=== PATIENT | female | born 1965 | race Caucasian/White ===

== ENCOUNTER 2022-03-07 08:57 | Outpatient (CLI) | payer OTHER, SELFPAY ==
--- OUTSIDE RECORDS SUMMARY | 2022-03-07 09:06 | XMS_ITS | Clinical Summary ---
:1965 Author Organization [facility] [place] [address] Care Team Providers Name Role Phone Clarissa Hamm MD Primary Care Provider [phone] Allergies No known active allergies Medications Medication Sig Dispensed Refills Start Date End Date Status letrozole (FEMARA) 2.5 Take 1 Tablet 30 Tablet 1 09/20/2020 Active mg tabletIndications: (2.5 mg) by mouth Breast mass, Malignant once daily. neoplasm of left breast in female, estrogen receptor positive, unspecified site of breast (HC) Active Problems Problem Noted Date Acute respiratory distress syndrome (ARDS) due to COVI D-19 virus 09/12/2020 Anemia 09/12/2020 Breast mass Social History Tobacco Use Types Packs/Day Years Used Date Smoking Tobacco: Never Assessed Sex Assigned at Date Recorded Not on file Obstetrics History Last Filed Vital Signs Vital Sign Reading Time Taken Comments Blood Pressure 151/73 09/20/2020 8:00 AM CDT Pulse 82 09/20/2020 8:00 AM CDT Temperature 36.8 ??C (98.2 ??F) 09/20/2020 8:00 AM CDT Respiratory Rate 16 09/20/2020 8:00 AM CDT Oxygen Saturation 97% 09/20/2020 8:00 AM CDT Inhaled Oxygen Concentration - - Weight 81.5 kg (179 lb 10.8 oz) 09/18/2020 6:00 AM CDT Height 157.5 cm (5' 2) 09/10/2020 9:30 AM CDT Body Mass Index 32.86 09/10/2020 9:30 AM CDT Plan of Treatment Health Maintenance Due Date Last Done Comments Tdap 01/26/1976 Depression screening for age 12+ 1977 HIV for age 15-65 01/26/1980 BMI (ht and wt on same day) for age 18+ 1983 Hepatitis C screening for age 18-79 1983 Tetanus booster 1985 Pap test for age 21-65 1986 Colonoscopy through age 75 2010 Lipids for age 45-75 2010 Mammogram for age 45-75 2010 Zoster (shingles) series for age 50+ (1 of 2015 2) COVID-19 vaccine series (3 - Booster for 03/23/2021 021, 12/29/2020 Moderna series) Influenza for age 50-64 11/23/2021 Results Not on filefrom Last 3 Months Additional Health Concerns Infection Onset Date Last Indicated COVID HistoryComment: Patient had positi ve COVID test on 09/10/20 Patient met COVID clearance criteria on 09/20/20. Patient no longer requires enhanced respiratory precautions. It is not recommended to collect additional COVID 09/20/2020 09/20/2020 -19 tests until 90 days have passed sinc e first positive test. Exception: patient develops new COVID-19 symptoms. Insurance Payer Benefit Plan / Subscriber ID Effective Dates Phone Addre ss Type Group MEDICA MEDICA CHOICE [id number] 2021-Present [address] [address] [place] [address] Advance Directives Latest Code Status on File Code Status Date Activated Date Inactivated Comments Full Code 09/10/2020 9:47 AM 09/20/2020 7:07 PM Question Answer Comments Code Status Discussion: Per Existing Order Care Teams Scientific Publications Editor Relationship Specialty Start Date End Date Clarissa Hamm MD PCP - General Family Practice 09/10/201999 [place] [address] (work)
[2022-03-07 10:06] LABS: Calcium* 10.7 mg/dL (8.4-10.6)
== END 2022-03-07 08:58 | disposition home or self-care (01) ==
PROVIDERS: PCP Family Medicine; Visit Provider Internal Medicine Hematology & Oncology
DX: C50.812 Malignant neoplasm of overlapping sites of left female breast (principal)
CPT/HCPCS: 36415; 82310; 82397

== ENCOUNTER 2022-04-13 15:43 | Outpatient (CLI) | payer OTHER, SELFPAY ==
--- NOTE | 2022-04-13 16:00 | CRLHL7_ITS ---
For Patients: As a result of the Century Cures Act, medical imaging exams and procedure reports are released immediately into your electronic medical record. You may view this report before your referring provider. If you have questions, please contact your health care provider. 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 Oral chemotherapy. TECHNIQUE: Contrast-enhanced CT of the chest abdomen and pelvis. 98 cc nonionic Isovue-370 administered. COMPARISON: September 04, 2021. FINDINGS: CT chest: Stable slightly prominent left axillary lymph node measured up to 1.3 cm unchanged. The previously suggested left breast skin thickening and increased left breast parenchymal densities are even less evident than before. No convincing evidence for breast masses. Clear lungs. Normal heart size. No pleural or pericardial effusions. No hilar or mediastinal lymphadenopathy. CT of the abdomen and pelvis: Mild hepatic fatty infiltration. The spleen, pancreas, and adrenal glands are normal. Mildly contracted gallbladder which is otherwise unremarkable. Mild ptosis of the right kidney. Circumaortic left renal vein which is a normal anatomic variant. No hydronephrosis. No solid renal mass. Normal caliber abdominal aorta and iliac arteries. Normal inferior vena cava. The small and large bowel are negative for obstruction or ileus. The stomach and duodenum although largely decompressed are within normal limits. Tubal ligation device on the right. No adnexal masses. 1 cm left fundal fibroid image 217 series 2. Normal urinary bladder. No ascites. No abdominal pelvic or inguinal lymphadenopathy. Minimal sclerosis anterior right femoral head entirely unchanged. Minor benign stable sclerosis right iliac wing also seen on November 07, 2016 and unchanged. Rotatory lumbar scoliotic curvature convex towards the left. Hypertrophic and degenerative change of the lumbar facet joints. Degenerative disc disease at multiple levels involving the lumbar spine. Chronic pars defects at L5 with grade II anterolisthesis of L5 on S1. IMPRESSION : 1. Stable chest CT. Mildly prominent but stable 1.3 cm left axillary lymph node. 2. Subtle sclerosis right femoral head unchanged. 3. Mild hepatic fatty infiltration. Please note that all CT scans at this facility use dose modulation, iterative reconstruction, and/or weight-based dosing when appropriate to reduce radiation dose to as low as reasonably achievable. Dictated by Oren Pineda MD @ 04/15/2022 10:48:12 PM (Electronically Signed)
== END 2022-04-13 15:44 | disposition home or self-care (01) ==
PROVIDERS: PCP Family Medicine; Visit Provider Internal Medicine Hematology & Oncology
DX: C50.812 Malignant neoplasm of overlapping sites of left female breast (principal); R59.0 Localized enlarged lymph nodes; K76.0 Fatty (change of) liver, not elsewhere classified
CPT/HCPCS: 71260; 74177; Q9967

== ENCOUNTER 2022-10-09 07:31 | Outpatient (CLI) | payer OTHER, SELFPAY ==
--- NOTE | 2022-10-09 08:00 | CRLHL7_ITS ---
For Patients: As a result of the Century Cures Act, medical imaging exams and procedure reports are released immediately into your electronic medical record. You may view this report before your referring provider. If you have questions, please contact your health care provider. INDICATION: Left-sided inflammatory breast cancer. 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 History of chemotherapy. Surveillance CT. Follow-up. TECHNIQUE: Contrast-enhanced CT of the chest, abdomen and pelvis. 98 cc Isovue 370 intravenous contrast. COMPARISON: April 13, 2022. FINDINGS: CT Chest: Stable 1.3 cm left axillary lymph node on series 2 image 28. Minor asymmetric skin thickening of the left breast relative to the right, less evident than before. Few millimeter low-attenuation left thyroid lobe nodule is entirely unchanged. The trachea and mainstem bronchi are patent and clear. Both lungs are expanded and clear. No hilar/mediastinal lymphadenopathy. Normal-caliber thoracic aorta. Minimal coronary artery calcification in the LAD territory. CT of the Abdomen and Pelvis: The liver, spleen, pancreas, gallbladder, both adrenal glands, and kidneys are within normal limits. Mild ptosis of the right kidney is entirely unchanged, congenital in nature. Circum-aortic left renal vein which is a normal anatomic variant. Normal-caliber abdominal aorta and iliac arteries. Normal inferior vena cava. The urinary bladder, uterus, and both adnexa are unremarkable. Essure device within the right hemipelvis seen previously. No bowel obstruction or ileus. No ascites or lymphadenopathy. Lumbar scoliotic curvature convex towards the left. Multilevel degenerative disc disease of the lumbar spine. Chronic pars defects at L5-S1 with grade II anterolisthesis of L5 on S1. Minimal sclerosis of the anterior right femoral head, entirely unchanged. IMPRESSION: 1. Stable chest CT. Mildly prominent stable 1.3 cm left axillary lymph node. 2. Subtle sclerosis of right femoral head, unchanged. 3. Mild hepatic fatty infiltration. Please note that all CT scans at this facility use dose modulation, iterative reconstruction, and/or weight-based dosing when appropriate to reduce radiation dose to as low as reasonably achievable. Dictated by Oren Pineda MD @ 10/09/2022 10:04:57 AM (Electronically Signed)
== END 2022-10-09 07:32 | disposition home or self-care (01) ==
LOC: CT 07:32
PROVIDERS: PCP Family Medicine; Visit Provider Internal Medicine Hematology & Oncology
DX: C50.812 Malignant neoplasm of overlapping sites of left female breast (principal); K76.0 Fatty (change of) liver, not elsewhere classified; R59.0 Localized enlarged lymph nodes
CPT/HCPCS: 71260; 74177; Q9967

== ENCOUNTER 2023-02-21 15:05 | Outpatient (CLI) | payer OTHER, SELFPAY ==
--- NOTE | 2023-02-21 15:00 | CRLHL7_ITS ---
For Patients: As a result of the Century Cures Act, medical imaging exams and procedure reports are released immediately into your electronic medical record. You may view this report before your referring provider. If you have questions, please contact your health care provider. DXA BONE MINERAL DENSITY STUDY Current height (in): 62.0. Weight (lb): 193.0. Menopause age: 52. Ethnicity: White. Reason for exam: Female inflammatory breast cancer. Screening. 1. Have you had a previous hip or vertebral fracture? No. 2. Have you had any fractures during your adult life which did not result from significant trauma (e.g., auto accident)? No. 3. Did either of your parents have a hip fracture? No. 4. Do you smoke? No. 5. Have you ever taken Glucocorticoids? No. 6. Do you have rheumatoid arthritis? No. 7. Do you have secondary osteoporosis? No. 8. Do you drink 3 or more alcoholic drinks per day? No. 9. Are you being treated for osteoporosis? No. 10. Have you ever taken any of the following medications: Actonel, Evista, Fosamax, Miacalcin, Reclast, Boniva, Forteo, HRT (i.e. estrogen/hormone therapy), Protelos, Prolia, Vitamin D, Calcium, other ??? please specify. ANSWER: Yes, vitamin D. 11. Do you have any of the following medical conditions: Anorexia or bulimia, asthma or emphysema, end stage renal disease, hyperparathyroidism, any seizure disorders, cancer, inflammatory bowel diseases, hysterectomy, other ??? please specify. ANSWER: Yes, breast cancer. 12. What was your maximum height (inches)? 62. 13. Do you perform weight bearing exercise regularly? No. 14. Do you regularly consume dairy products? No. 15. Do you drink caffeinated beverages? Yes. 16. At what age did your period start? 12. 17. Are you premenopausal? No. 18. How many full-term pregnancies have you had? 3. 19. Have you ever missed your period for more than 6 months in a row (not including or menopause)? No. TECHNIQUE: Bone mineral density study was performed using the [employer]. FINDINGS: The results of the study expressed as bone mineral density (BMD) are as follows: Lumbar spine L1 to L4: BMD: 1.237 g/cm2. T-score: 1.7. Z-score: 3.0. Neck Left: BMD: 0.897 g/cm2. T-score: 0.4. Z-score: 1.6. Right: BMD: 0.824 g/cm2. T-score: -0.2. Z-score: 1.0. Total Left: BMD: 1.174 g/cm2. T-score: 1.9. Z-score: 2.7. Right: BMD: 1.097 g/cm2. T-score: 1.3. Z-score: 2.1. IMPRESSION: Normal bone density. Justo Cadena M.D. Diagnostic Radiologist [email or web address] Transcribed: 9:47 am DW/Dictated by: Justo Cadena MD @ 02/25/2023 6:38:00 AM (Electronically Signed)
== END 2023-02-21 15:06 | disposition home or self-care (01) ==
LOC: RAD 15:06
PROVIDERS: PCP Family Medicine; Visit Provider Nurse Practitioner Adult Health
DX: Z13.820 Encounter for screening for osteoporosis (principal); C50.812 Malignant neoplasm of overlapping sites of left female breast
CPT/HCPCS: 77080

== ENCOUNTER 2023-04-09 14:48 | Outpatient (CLI) | payer OTHER, SELFPAY | END 2023-04-09 14:49 | disposition home or self-care (01) | LOC: NFLDREF 14:49 | PROVIDERS: PCP Family Medicine; Visit Provider Family Medicine | DX: J10.1 Influenza due to other identified influenza virus with other respiratory manifestations (principal); C50.919 Malignant neoplasm of unspecified site of unspecified female breast; Z79.811 Long term (current) use of aromatase inhibitors | CPT/HCPCS: 80048; 82565 ==

== ENCOUNTER 2023-04-19 08:46 | Outpatient (CLI) | payer OTHER, SELFPAY ==
--- OUTSIDE RECORDS SUMMARY | 2023-04-19 08:49 | XMS_ITS | Encounter Summary ---
Author Name Unknown Organization [facility] Address [address] [facility] [place] [address] Care Team Providers Care Billing Machine Operator Name Role Phone Cynthia Sheehan MD Unavailable [phone] Clarissa Hamm MD Primary Care Provider + Cynthia Sheehan MD Unavailable [phone] Encounter Details Date Type Department Care Team (Late st Contact Info) Description 02/18/2023 MyC Medical Advice [place] [id number] [facility] [address] [place] [address] Leonora Frausto, RN Social History Tobacco Use Types Packs/Day Years Used Date Smoking Tobacco: Never Assessed Adolescent Education Answer Date Record ed Getting School Help Needed Not on file 12/15 Sex and Gender Information Value Date Recorded Sex Assigned at Not on file Gender Identity Not on file Sexual Orientation Not on file documented as of this encounter Plan of Treatment Upcoming Encounters Date Type Department Care Team (Late st Contact Info) Description 05/27/2023 8:30 AM PRO[employer] INTER[employer] Virtual Visit [facility] [address] [facility] [address] [place] [phone] Cynthia Sheehan MD [address] [facility] [address] [place] [address] documented as of this encounter Visit Diagnoses Not on filedocumented in this encounter Care Teams Billing Machine Operator Relationship Specialty Start Date End Date Clarissa Hamm MD [facility] [address] [place] [address] PCP - General 08/07/22 Cynthia Sheehan MD [address] [facility] [address] [place], [place] [address] Hospitalist Endocrinology, Diabetes, and Metabolism 04/24/22 Cynthia Sheehan MD [address] [facility] [address] [place], [place] [address] Assigned Endocrinology Provider 08/11/22 documented as of this encounter
--- OUTSIDE RECORDS SUMMARY | 2023-04-19 08:49 | XMS_ITS | Encounter Summary ---
Author Name Unknown Organization [place] Address [address] [facility] [place] [address] Care Team Providers Care Air Conditioning Technician Name Role Phone Cynthia Sheehan MD Unavailable [phone] Clarissa Hamm MD Primary Care Provider + Cynthia Sheehan MD Unavailable [phone] Encounter Details Date Type Department Care Team (Late st Contact Info) Description 02/15/2023 9:45 AM HELP DESK ANALYST Lab M [address] [address] Hyperparathyroidism (H24) Social History Tobacco Use Types Packs/Day Years Used Date Smoking Tobacco: Never Assessed Adolescent Education Answer Date Record ed Getting School Help Needed Not on file 12/15 Sex and Gender Information Value Date Recorded Sex Assigned at Not on file Gender Identity Not on file Sexual Orientation Not on file documented as of this encounter Miscellaneous Notes * Result Encounter Note - Cynthia Sheehan MD - 02/15/2023 9:45 AM HELP DESK ANALYST Labs/results noted. Please see telephone encounter dated 02/16/2023. DESK ANALYST documented in this encounter Plan of Treatment Upcoming Encounters Date Type Department Care Team (Late st Contact Info) Description 05/27/2023 8:30 AM HELP DESK ANALYST Virtual Visit M [facility] [address] [place] [address] Cynthia Sheehan MD [address] [place] [address] documented as of this encounter Procedures Procedure Name Priority Date/Time Associated Diagnosis Comments VITAMIN D DEFICIENCY SCREENING Routine 02/15/2023 9:26 AM HELP DESK ANALYST Hyperparathyroidism (H24) PHOSPHORUS Routine 02/15/2023 9:26 AM HELP DESK ANALYST Hyperparathyroidism (H24) PARATHYROID HORMONE INTACT Routine 02/15/2023 9:26 AM HELP DESK ANALYST Hyperparathyroidism (H24) MAGNESIUM Routine 02/15/2023 9:26 AM HELP DESK ANALYST Hyperparathyroidism (H24) CREATININE Routine 02/15/2023 9:26 AM HELP DESK ANALYST Hyperparathyroidism (H24) CALCIUM Routine 02/15/2023 9:26 AM HELP DESK ANALYST Hyperparathyroidism (H24) documented in this encounter Results * (ABNORMAL) Creatinine (02/15/2023 9:26 AM HELP DESK ANALYST) Creatinine 1.21(H) 0.51 - 0.95 mg/dL 02/15/2023 4:21 PM HELP DESK ANALYST [facility] GFR Estimate 52(L) >60 mL/min/1.7 3m2 02/15/2023 4:21 PM HELP DESK ANALYST [facility] Blood BLOOD SPECIMEN / Unknown Venipuncture / Unknown 02/15/2023 9:26 AM HELP DESK ANALYST 02/15/2023 9:27 AM HELP DESK ANALYST Cynthia Sheehan MD LAB - BLOOD ORDER ANDREA [facility] [place] [facility] [address] [facility], [address] [place] [address] [phone] * (ABNORMAL) Calcium (02/15/2023 9:26 AM HELP DESK ANALYST) Calcium 10.3(H) 8.6 - 10.0 mg/dL 02/15/2023 4:21 PM HELP DESK ANALYST [facility] Blood BLOOD SPECIMEN / Unknown Venipuncture / Unknown 02/15/2023 9:26 AM HELP DESK ANALYST 02/15/2023 9:27 AM HELP DESK ANALYST Cynthia Sheehan MD LAB - BLOOD ORDER ANDREA [facility] [address] [facility], [address] [address], [facility] [phone] * Vitamin D Deficiency (02/15/2023 9:26 AM HELP DESK ANALYST) Vitamin D, Total (25-Hydroxy) 26 20 - 50 ng/mL 02/15/2023 4:21 PM HELP DESK ANALYST [facility] Comment:optimum levels Blood BLOOD SPECIMEN / Unknown Venipuncture / Unknown 02/15/2023 9:26 AM HELP DESK ANALYST 02/15/2023 9:27 AM HELP DESK ANALYST Narrative [facility] - 02/15/2023 4:21 PM HELP DESK ANALYST Season, race, dietary intake, and treatment affect the concentration of 62-[id number]-Nfailfo D. Values may decrease during winter months and increase during summer months. Vitamin D determination is routinely performed by an immunoassay specific for 25 hydroxyvitamin D3. ??If an individual is on vitamin D2(ergocalciferol) supplementation, please specify 25 OH vitamin D2 and D3 level determination by LCMSMS test VITD23. Cynthia Sheehan MD LAB - BLOOD ORDER ANDREA [facility] [address] [facility], [address] [place] [address], [facility] [phone] * (ABNORMAL) Parathyroid Hormone Intact (02/15/2023 9:26 AM HELP DESK ANALYST) Parathyroid Hormone Intact 94(H) 15 - 65 pg/mL 02/15/2023 4:06 PM HELP DESK ANALYST [facility] Blood BLOOD SPECIMEN / Unknown Venipuncture / Unknown 02/15/2023 9:26 AM HELP DESK ANALYST 02/15/2023 9:27 AM HELP DESK ANALYST Narrative [facility] - 02/15/2023 4:06 PM HELP DESK ANALYST This result was obtained with the [employer] PTH STAT assay. This reference range differs from PTH assays used in other [facility] laboratories. Cynthia Sheehan MD LAB - BLOOD ORDER ANDREA [facility] [address] [facility], [address] [address], [facility] [phone] * Magnesium (02/15/2023 9:26 AM HELP DESK ANALYST) Magnesium 2.1 1.7 - 2.3 mg/dL 02/15/2023 4:21 PM HELP DESK ANALYST [facility] Blood BLOOD SPECIMEN / Unknown Venipuncture / Unknown 02/15/2023 9:26 AM HELP DESK ANALYST 02/15/2023 9:27 AM HELP DESK ANALYST Cynthia Sheehan MD LAB - BLOOD ORDER ANDREA [facility] [address] [facility], [address] [address], [facility] [phone] * Phosphorus (02/15/2023 9:26 AM HELP DESK ANALYST) Phosphorus 2.8 2.5 - 4.5 mg/dL 02/15/2023 4:21 PM HELP DESK ANALYST [facility] Blood BLOOD SPECIMEN / Unknown Venipuncture / Unknown 02/15/2023 9:26 AM HELP DESK ANALYST 02/15/2023 9:27 AM HELP DESK ANALYST Cynthia Sheehan MD LAB - BLOOD ORDER ANDREA [facility] [place] [facility] [address] [facility], [address] [place] [address] [phone] documented in this encounter Visit Diagnoses Diagnosis Hyperparathyroidism (H24) Hyperparathyroidism, unspecified documented in this encounter Care Teams Air Conditioning Technician Relationship Specialty Start Date End Date Clarissa Hamm MD [facility] & [address] [address] PCP - General 08/07/22 Cynthia Sheehan MD [address] [facility] [address] [place] [address] Hospitalist Endocrinology, Diabetes, and Metabolism 04/24/22 Cynthia Sheehan MD [address] [place] [address] 200 [place] [address] Assigned Endocrinology Provider 08/11/22 documented as of this encounter
--- OUTSIDE RECORDS SUMMARY | 2023-04-19 08:49 | XMS_ITS | Encounter Summary ---
Author Name Unknown Organization [place] Address [address] [facility] [place] [address] Care Team Providers Care Assembler Tubing Name Role Phone Cynthia Sheehan MD Unavailable [phone] Clarissa Hamm MD Primary Care Provider + Cynthia Sheehan MD Unavailable [phone] Reason for Visit * Reason Onset Date Comments Call Back 08/21/2022 Encounter Details Date Type Department Care Team (Late st Contact Info) Description 08/21/2022 Telephone [facility] [address] [place] [address] Cynthia Sheehan MD [address] [place] [address] Call Back Social History Tobacco Use Types Packs/Day Years Used Date Smoking Tobacco: Never Assessed Sex and Gender Information Value Date Recorded Sex Assigned at Not on file Gender Identity Not on file Sexual Orientation Not on file COVID-19 Exposure Response Date Recorded In the last 10 days, have yo u been in contact with someone who was confirmed or suspected to have Coronavirus/COVID-19? No / Unsure 08/17/2022 11:20 AM CDT documented as of this encounter Miscellaneous Notes * Telephone Encounter - Kalina Will RN - 08/22/2022 10:37 AM CDT Pt informed of below and verbalized understanding. Pt will c/b to make appt. Pt taking wanted to let provider know b12 Vit C 500mg 30mg of zinc. * Telephone Encounter - Mabel Thompson - 08/21/2022 12:42 PM CDT [facility] Phone Message May a detailed message be left on voicemail: yes Reason for Call: Other: Per pt would like if whoever called her to not call until 4 pm today. Pt istaking a class until 4 pm unless the team calls her tomorrow which is ok. Please and thank you! Action Taken: Message routed to: [facility] ([facility]): ENDO Travel Screening: Not Applicable * Telephone Encounter - Kalina Will RN - 08/21/2022 11:44 AM CDT LM for pt to c/b to discuss below. * Telephone Encounter - Cynthia Sheehan MD - 08/21/2022 8:59 AM CDT Latest Ref Rng 08/17/2022 11:21 AM ENDO [facility] Vitamin D Deficiency screening 20 - 75 ug/L 11 (L) Calcium 8.6 - 10.0 mg/dL 11.1 (H) Creatinine 0.51 - 0.95 mg/dL 1.10 (H) Magnesium 1.7 - 2.3 mg/dL 2.1 Parathyroid Hormone Intact 15 - 65 pg/mL 80 (H) Legend: (L) Low (H) High Noted low vit D. Recommend to start vit D 50,000 international unit(s)/week. Labs in 6 weeks. Maintain adequate hydration. Consider urine collection and scan after that. Please make a lab appointment for blood work and follow up clinic appointment in 1 week after that to discuss results. OK to book in next available open HEBER slot. (/) Please note that there are 2 HEBER slots/day. Please make sure that 1 HEBER slot is available for urgent needs. Let me know if you have any questions or no slots. documented in this encounter Plan of Treatment Upcoming Encounters Date Type Department Care Team (Late st Contact Info) Description 05/27/2023 8:30 AM HAIR SPINNING MACHINE OPERATOR Virtual Visit [facility] [address] [place] [address] Cynthia Sheehan MD [address] [place] [address] documented as of this encounter Results * (ABNORMAL) Creatinine (02/15/2023 9:26 AM HAIR SPINNING MACHINE OPERATOR) Creatinine 1.21(H) 0.51 - 0.95 mg/dL 02/15/2023 4:21 PM HAIR SPINNING MACHINE OPERATOR [facility] GFR Estimate 52(L) >60 mL/min/1.7 3m2 02/15/2023 4:21 PM HAIR SPINNING MACHINE OPERATOR [facility] Blood BLOOD SPECIMEN / Unknown Venipuncture / Unknown 02/15/2023 9:26 AM HAIR SPINNING MACHINE OPERATOR 02/15/2023 9:27 AM HAIR SPINNING MACHINE OPERATOR Cynthia Sheehan MD LAB - BLOOD ORDER ANDREA [facility] Core Lab [address], [address] [place] [address], [facility] [phone] * (ABNORMAL) Calcium (02/15/2023 9:26 AM HAIR SPINNING MACHINE OPERATOR) Calcium 10.3(H) 8.6 - 10.0 mg/dL 02/15/2023 4:21 PM HAIR SPINNING MACHINE OPERATOR [facility] Blood BLOOD SPECIMEN / Unknown Venipuncture / Unknown 02/15/2023 9:26 AM HAIR SPINNING MACHINE OPERATOR 02/15/2023 9:27 AM HAIR SPINNING MACHINE OPERATOR Cynthia Sheehan MD LAB - BLOOD ORDER ANDREA U LAB[facility]AT[facility] Core Lab [address] [facility], [address] [address], [facility] [phone] * Vitamin D Deficiency (02/15/2023 9:26 AM HAIR SPINNING MACHINE OPERATOR) Vitamin D, Total (25-Hydroxy) 26 20 - 50 ng/mL 02/15/2023 4:21 PM HAIR SPINNING MACHINE OPERATOR [facility] Comment:optimum levels Blood BLOOD SPECIMEN / Unknown Venipuncture / Unknown 02/15/2023 9:26 AM HAIR SPINNING MACHINE OPERATOR 02/15/2023 9:27 AM HAIR SPINNING MACHINE OPERATOR Narrative [facility] - 02/15/2023 4:21 PM HAIR SPINNING MACHINE OPERATOR Season, race, dietary intake, and treatment affect the concentration of 47-neuegnu-Kcoavaf D. Values may decrease during winter months and increase during summer months. Vitamin D determination is routinely performed by an immunoassay specific for 25 hydroxyvitamin D3. ??If an individual is on vitamin D2(ergocalciferol) supplementation, please specify 25 [place] vitamin D2 and D3 level determination by LCMSMS test VITD23. Cynthia Sheehan MD LAB - BLOOD ORDER ANDREA Performing Organization Address [facility] [address]/ZIP Co de Phone Number U LABORATORY [facility] Core Lab [address] [facility] [address], [address] [address], [facility] [phone] * (ABNORMAL) Parathyroid Hormone Intact (02/15/2023 9:26 AM HAIR SPINNING MACHINE OPERATOR) Parathyroid Hormone Intact 94(H) 15 - 65 pg/mL 02/15/2023 4:06 PM HAIR SPINNING MACHINE OPERATOR [facility] Blood BLOOD SPECIMEN / Unknown Venipuncture / Unknown 02/15/2023 9:26 AM HAIR SPINNING MACHINE OPERATOR 02/15/2023 9:27 AM HAIR SPINNING MACHINE OPERATOR Narrative [facility] - 02/15/2023 4:06 PM HAIR SPINNING MACHINE OPERATOR This result was obtained with the Shasta Elecsys PTH STAT assay. This reference range differs from PTH assays used in other [facility] laboratories. Cynthia Sheehan MD LAB - BLOOD ORDER ANDREA LABORATORY [facility] Core Lab [address], [address] [place] [address], [facility] [phone] * Magnesium (02/15/2023 9:26 AM HAIR SPINNING MACHINE OPERATOR) Magnesium 2.1 1.7 - 2.3 mg/dL 02/15/2023 4:21 PM HAIR SPINNING MACHINE OPERATOR [facility] Blood BLOOD SPECIMEN / Unknown Venipuncture / Unknown 02/15/2023 9:26 AM HAIR SPINNING MACHINE OPERATOR 02/15/2023 9:27 AM HAIR SPINNING MACHINE OPERATOR Cynthia Sheehan MD LAB - BLOOD ORDER ANDREA LABORATORY [facility] Core Lab [address], [address] [address], [facility] [phone] * Phosphorus (02/15/2023 9:26 AM HAIR SPINNING MACHINE OPERATOR) Phosphorus 2.8 2.5 - 4.5 mg/dL 02/15/2023 4:21 PM HAIR SPINNING MACHINE OPERATOR [facility] Blood BLOOD SPECIMEN / Unknown Venipuncture / Unknown 02/15/2023 9:26 AM HAIR SPINNING MACHINE OPERATOR 02/15/2023 9:27 AM HAIR SPINNING MACHINE OPERATOR Narrative Authorizing Provider Result Jyoti Sheehan MD LAB - BLOOD ORDER ANDREA [facility] Core Lab [address], [address] [place] [address], [facility] [phone] documented in this encounter Visit Diagnoses Diagnosis Hyperparathyroidism (H24)- Primary Hyperparathyroidism, unspecified documented in this encounter Care Teams Assembler Tubing Relationship Specialty Start Date End Date Clarissa Hamm MD [facility] & [address] [address] PCP - General 08/07/22 Cynthia Sheehan MD [address] [facility] [address] [place], [place] [phone] Hospitalist Endocrinology, Diabetes, and Metabolism 04/24/22 Cynthia Sheehan MD [address] [place] [address] [address] [place], [place] [address] Assigned Endocrinology Provider 08/11/22 documented as of this encounter
--- OUTSIDE RECORDS SUMMARY | 2023-04-19 08:49 | XMS_ITS | Encounter Summary ---
Author Name Unknown Organization [place] Address [address] [facility] [place] [address] Care Team Providers Care Professor Of Law Name Role Phone Cynthia Sheehan MD Unavailable [phone] Clarissa Hamm MD Primary Care Provider + Cynthia Sheehan MD Unavailable [phone] Encounter Details Date Type Department Care Team (Latest Contact Info) Description 08/17/2022 Travel Social History Tobacco Use Types Packs/Day Years [...] AM CDT documented as of this encounter Plan of Treatment Upcoming Encounters Date Type Department Care Team (Late st Contact Info) Description 05/27/2023 8:30 AM TRAFFIC OPERATOR Virtual Visit [facility] [address] [place] [address] Cynthia Sheehan MD [address] [place] [address] documented as of this encounter Visit Diagnoses Not on filedocumented in this encounter Care Teams Professor Of Law Relationship Specialty Start Date End Date Clarissa Hamm MD [facility] [address] [place] [address] PCP - General 08/07/22 Cynthia Sheehan MD [address] [facility] [address] [place] [address] Hospitalist Endocrinology, Diabetes, and Metabolism 04/24/22 Cynthia Sheehan MD [address] [place] [address] [address] [place] [address] Assigned Endocrinology Provider 08/11/22 documented as of this encounter
--- OUTSIDE RECORDS SUMMARY | 2023-04-19 08:49 | XMS_ITS | Encounter Summary ---
Author Name Unknown Organization [place] Address [address] [facility] [place] [address] Care Team Providers Care Seasonal Driver Name Role Phone Cynthia Sheehan MD Unavailable [phone] Clarissa Hamm MD Primary Care Provider + Cynthia Sheehan MD Unavailable [phone] Reason for Visit * Reason Comments Medication Refill Encounter Details Date Type Department Care Team (Late st Contact Info) Description 11/11/2022 Refill [facility] [address] [place] [address] Cynthia Sheehan MD [address] [place] [address] Medication Refill Social History Tobacco Use Types Packs/Day Years Used Date Smoking Tobacco: Never Assessed Sex and Gender Information Value Date Recorded Sex Assigned at Not on file Gender Identity Not on file Sexual Orientation Not on file documented as of this encounter Miscellaneous Notes * Telephone Encounter - Trista Stone RN - 11/12/2022 8:01 AM CDT Requested Prescriptions Pending Prescriptions Disp Refills vitamin D2 (ERGOCALCIFEROL) 16453 units (1250 mcg) capsule [Pharmacy Med Name: VITAMIN D2 50,000IU (ERGO) CAP RX] 12 capsule 0 Sig: TAKE 1 CAPSULE BY MOUTH 1 TIME A WEEK There is no refill protocol information for this order documented in this encounter Plan of Treatment Upcoming Encounters Date Type Department Care Team (Late st Contact Info) Description 05/27/2023 8:30 AM PORCELAIN ENAMEL LABORER Virtual Visit [facility] [address] [place] [address] Cynthia Sheehan MD [address] [place] [address] documented as of this encounter Visit Diagnoses Diagnosis Hyperparathyroidism (H24) Hyperparathyroidism, unspecified documented in this encounter Care Teams Seasonal Driver Relationship Specialty Start Date End Date Clarissa Hamm MD [facility] & [address] [address] PCP - General 08/07/22 Cynthia Sheehan MD [address] [facility] [address] [place] [address] Hospitalist Endocrinology, Diabetes, and Metabolism 04/24/22 Cynthia Sheehan MD [address] [place] [address] Assigned Endocrinology Provider 08/11/22 documented as of this encounter
--- OUTSIDE RECORDS SUMMARY | 2023-04-19 08:49 | XMS_ITS | Clinical Summary ---
Author Name Unknown Organization [place] Address [address] [facility] [place] [address] Care Team Providers Care Industrial Engineering Manager Name Role Phone Cynthia Sheehan MD Unavailable Clarissa Hamm MD Primary Care Provider + Cynthia Sheehan MD Unavailable [phone] Allergies Active Allergy Reactions Criticality Noted Date Comments Clindamycin Dermatitis,Hives,Itching,Rash,Swelling Low 08/07/2022 Latex Dermatitis 08/07/2022 Medications Medication Sig Dispensed Refills Start Date End Date Status Zoledronic Acid (ZOMETA IV) 0 04/08/2021 Active abemaciclib (VERZENIO) 100 MG tablet 0 01/09/2021 Active letrozole (FEMARA) 2.5 MG tablet Take 1 tablet by mouth daily at 2 pm 0 06/30/2022 Active VERZENIO 150 MG tablet 0 08/05/2022 Active vitamin D2 (ERGOCALCIFEROL) 90921 units (1250 mcg) capsuleIndications:H yperparathyroidism (H24) TAKE 1 CAPSULE BY MOUTH 1 TIME A WEEK 12 capsule 0 11/12/2022 Active Active Problems Problem Noted Date Diagnosed Date Hyperparathyroidism (H24) 08/07/2022 Hypercalcemia 08/07/2022 Encounters Date Type Department Care Team Description 02/18/2023 MyC Medical Advice [address] [address] Leonora Frausto RN 02/16/2023 Telephone [facility] [address] [place] [phone] Cynthia Sheehan MD 02/15/2023 9:45 AM PARTY PLANNER Lab [facility] [address] [place] [address] Hyperparathyroidism (H24) 02/15/2023 Travel 02/07/2023 Telephone [facility] [address] [place] [phone] Cynthia Sheehan MD Medication Refill from Last 3 Months Social History Tobacco Use Types Packs/Day Years Used Date Smoking Tobacco: Never Assessed Adolescent Education Answer Date Record ed Getting School Help Needed Not on file 12/15 Sex and Gender Information Value Date Recorded Sex Assigned at Not on file Gender Identity Not on file Sexual Orientation Not on file Plan of Treatment Upcoming Encounters Date Type Department Care Team ([facility] Contact Info) Description 05/27/2023 8:30 AM PARTY PLANNER Virtual Visit [facility] [address] [place] [phone] Cynthia Sheehan MD [address] [place] [address] [address] [place] [address] Health Maintenance Due Date Last Done Comments ADVANCE CARE PLANNING 1965 ANNUAL REVIEW OF HM ORDERS 1965 CT COLONOGRAPHY 1965 FIT 1965 FLEX SIG 1965 HEPATITIS B IMMUNIZATION (1 of 3 - 3-dose series) 1965 MAMMO SCREENING 1965 YEARLY PREVENTIVE VISIT 1965 sDNA (Cologuard) 1965 Pneumococcal Vaccine: Pediatrics (0 to 5 Years) and At-Risk Patients (6 to 64 Years) (1 of 2 - PCV) 1971 COLONOSCOPY 1975 COLORECTAL CANCER SCREENING 1975 HIV SCREENING 01/26/1980 HEPATITIS C SCREENING 1983 ZOSTER IMMUNIZATION (1 of 2) 01/26/1984 PAP 1986 LIPID 2010 COVID-19 Vaccine (3 - Modern a risk series) 02/23/2021 01/26/2021, 12/29/2020 DTAP/TDAP/TD IMMUNIZATION (2 - Td or Tdap) 08/02/2021 08/03/2011 INFLUENZA VACCINE (#1) 2022 PHQ-2 (once per calendar year) 2023 HPV IMMUNIZATION Aged Out No longer e ligible based on patient's age to complete this topic IPV IMMUNIZATION Aged Out No longer e ligible based on patient's age to complete this topic MENINGITIS IMMUNIZATION Aged Out No l onger eligible based on patient's age to complete this topic RSV MONOCLONAL ANTIBODY Aged Out No l onger eligible based on patient's age to complete this topic Procedures Procedure Name Priority Date/Time Associated Diagnosis Comments CREATININE Routine 02/15/2023 9:26 AM PARTY PLANNER Hyperparathyroidism (H24) CALCIUM Routine 02/15/2023 9:26 AM PARTY PLANNER Hyperparathyroidism (H24) VITAMIN D DEFICIENCY SCREENING Routine 02/15/2023 9:26 AM PARTY PLANNER Hyperparathyroidism (H24) PARATHYROID HORMONE INTACT Routine 02/15/2023 9:26 AM PARTY PLANNER Hyperparathyroidism (H24) MAGNESIUM Routine 02/15/2023 9:26 AM PARTY PLANNER Hyperparathyroidism (H24) PHOSPHORUS Routine 02/15/2023 9:26 AM PARTY PLANNER Hyperparathyroidism (H24) from Last 3 Months Results * Vitamin D Deficiency (02/15/2023 9:26 AM PARTY PLANNER) Vitamin D, Total (25-Hydroxy) 26 20 - 50 ng/mL 02/15/2023 4:21 PM PARTY PLANNER [facility] Comment:optimum levels Blood BLOOD SPECIMEN / Unknown Venipuncture / Unknown 02/15/2023 9:26 AM PARTY PLANNER 02/15/2023 9:27 AM PARTY PLANNER Narrative [facility] - 02/15/2023 4:21 PM PARTY PLANNER Season, race, dietary intake, and treatment affect the concentration of 76-klnuzih-Ofnfepa D. Values may decrease during winter months and increase during summer months. Vitamin D determination is routinely performed by an immunoassay specific for 25 hydroxyvitamin D3. ??If an individual is on vitamin D2(ergocalciferol) supplementation, please specify 25 [place] vitamin D2 and D3 level determination by LCMSMS test VITD23. Cynthia Sheehan MD LAB - BLOOD ORDER ANDREA LABORATORY [facility] Core Lab [address] [facility], [address] [phone], [facility] [phone] * Phosphorus (02/15/2023 9:26 AM PARTY PLANNER) Phosphorus 2.8 2.5 - 4.5 mg/dL 02/15/2023 4:21 PM PARTY PLANNER [facility] Blood BLOOD SPECIMEN / Unknown Venipuncture / Unknown 02/15/2023 9:26 AM PARTY PLANNER 02/15/2023 9:27 AM PARTY PLANNER Cynthia Sheehan MD LAB - BLOOD ORDER ANDREA Performing Organization Address City/[facility]/ZIP Co de Phone Number LABORATORY [facility] Core Lab [address] [place] [address], [address] [address], [facility] [phone] * (ABNORMAL) Parathyroid Hormone Intact (02/15/2023 9:26 AM PARTY PLANNER) Parathyroid Hormone Intact 94(H) 15 - 65 pg/mL 02/15/2023 4:06 PM PARTY PLANNER [facility] Blood BLOOD SPECIMEN / Unknown Venipuncture / Unknown 02/15/2023 9:26 AM PARTY PLANNER 02/15/2023 9:27 AM PARTY PLANNER Narrative [facility] - 02/15/2023 4:06 PM PARTY PLANNER This result was obtained with the Shasta Elecsys PTH STAT assay. This reference range differs from PTH assays used in other [facility] laboratories. Cynthia Sheehan MD LAB - BLOOD ORDER ANDREA U LABORATORY [facility] Core Lab [address] [facility], [address] [phone], [facility] [phone] * Magnesium (02/15/2023 9:26 AM PARTY PLANNER) Magnesium 2.1 1.7 - 2.3 mg/dL 02/15/2023 4:21 PM PARTY PLANNER [facility] Blood BLOOD SPECIMEN / Unknown Venipuncture / Unknown 02/15/2023 9:26 AM PARTY PLANNER 02/15/2023 9:27 AM PARTY PLANNER Cynthia Sheehan MD LAB - BLOOD ORDER ANDREA Performing Organization Address City/[facility]/ZIP Co de Phone Number [facility] [place] Core Lab [address] [facility], [address] [address], [facility] [phone] * (ABNORMAL) Creatinine (02/15/2023 9:26 AM PARTY PLANNER) Creatinine 1.21(H) 0.51 - 0.95 mg/dL 02/15/2023 4:21 PM PARTY PLANNER [facility] GFR Estimate 52(L) >60 mL/min/1.7 3m2 02/15/2023 4:21 PM PARTY PLANNER [facility] Blood BLOOD SPECIMEN / Unknown Venipuncture / Unknown 02/15/2023 9:26 AM PARTY PLANNER 02/15/2023 9:27 AM PARTY PLANNER Cynthia Sheehan MD LAB - BLOOD ORDER ANDREA [facility] [place] Core Lab [address] [facility], [address] [address], [facility] [phone] * (ABNORMAL) Calcium (02/15/2023 9:26 AM PARTY PLANNER) Calcium 10.3(H) 8.6 - 10.0 mg/dL 02/15/2023 4:21 PM PARTY PLANNER [facility] Blood BLOOD SPECIMEN / Unknown Venipuncture / Unknown 02/15/2023 9:26 AM PARTY PLANNER 02/15/2023 9:27 AM PARTY PLANNER Cynthia Sheehan MD LAB - BLOOD ORDER ANDREA [facility] [place] Core Lab [address] [facility] [address], [address] [place] [address], [facility] [phone] from Last 3 Months Care Teams Industrial Engineering Manager Relationship Specialty Start Date End Date Clarissa Hamm MD [facility] [address] [place] [address] PCP - General 08/07/22 Cynthia Sheehan MD [address] [facility] [address] [place] [address] Hospitalist Endocrinology, Diabetes, and Metabolism 04/24/22 Cynthia Sheehan MD [address] [place], [place] [address] Assigned Endocrinology Provider 08/11/22
--- OUTSIDE RECORDS SUMMARY | 2023-04-19 08:49 | XMS_ITS | Referral Summary ---
Author Name Unknown Organization [place] Address [address] [facility] [place] [address] Care Team Providers Care Vocational Training Instructor Name Role Phone Cynthia Sheehan MD Unavailable [phone] Clarissa Hamm MD Primary Care Provider + Cynthia Sheehan MD Unavailable [phone] Encounters Date Type Department Care Team Description 02/18/2023 MyC Medical Advice [address] [place] [phone] Leonora Frausto RN 02/16/2023 Telephone [facility] [address] [place] [address] Cynthia Sheehan MD 02/15/2023 Travel 02/15/2023 9:45 AM BUSINESS PLANNER Lab [facility] [address] [place] [phone] Hyperparathyroidism (H24) 02/07/2023 Telephone [facility] [address] [place] [address] Cynthia Sheehan MD Medication Refill from Last 3 Months Allergies Active Allergy Reactions Criticality Noted Date [...] tablet 0 08/05/2022 Active vitamin D2 (ERGOCALCIFEROL) 53014 units (1250 mcg) capsuleIndications:H yperparathyroidism (H24) TAKE 1 CAPSULE BY MOUTH 1 TIME A WEEK 12 capsule 0 11/12/2022 Active Active Problems Problem Noted Date Diagnosed Date Hyperparathyroidism (H24) 08/07/2022 Hypercalcemia 08/07/2022 Social History Tobacco Use Types Packs/Day Years Used Date Smoking Tobacco: Never Assessed Adolescent Education Answer Date Record ed Getting School Help Needed Not on file 12/15 Sex and Gender Information Value Date Recorded Sex Assigned at Not on file Gender Identity Not on file Sexual Orientation Not on file Plan of Treatment Upcoming Encounters Date Type Department Care Team ([facility] Contact Info) Description 05/27/2023 8:30 AM BUSINESS PLANNER Virtual Visit [facility] [address] [facility] [address] [place] [address] Cynthia Sheehan MD [address] [place] [address] [address] [place] [address] Procedures Procedure Name Priority Date/Time Associated Diagnosis Comments CREATININE Routine 02/15/2023 9:26 AM BUSINESS PLANNER Hyperparathyroidism (H24) CALCIUM Routine 02/15/2023 9:26 AM BUSINESS PLANNER Hyperparathyroidism (H24) VITAMIN D DEFICIENCY SCREENING Routine 02/15/2023 9:26 AM BUSINESS PLANNER Hyperparathyroidism (H24) PARATHYROID HORMONE INTACT Routine 02/15/2023 9:26 AM BUSINESS PLANNER Hyperparathyroidism (H24) MAGNESIUM Routine 02/15/2023 9:26 AM BUSINESS PLANNER Hyperparathyroidism (H24) PHOSPHORUS Routine 02/15/2023 9:26 AM BUSINESS PLANNER Hyperparathyroidism (H24) from Last 3 Months Results * Vitamin D Deficiency (02/15/2023 9:26 AM BUSINESS PLANNER) Vitamin D, Total (25-Hydroxy) 26 20 - 50 ng/mL 02/15/2023 4:21 PM BUSINESS PLANNER [facility] Comment:optimum levels Blood BLOOD SPECIMEN / Unknown Venipuncture / Unknown 02/15/2023 9:26 AM BUSINESS PLANNER 02/15/2023 9:27 AM BUSINESS PLANNER Narrative [facility] - 02/15/2023 4:21 PM BUSINESS PLANNER Season, race, dietary intake, and treatment affect the concentration of 60-oqewfyr-Dxmlaoi D. Values may decrease during winter months and increase during summer months. Vitamin D determination is routinely performed by an immunoassay specific for 25 hydroxyvitamin D3. ??If an individual is on vitamin D2(ergocalciferol) supplementation, please specify 25 OH vitamin D2 and D3 level determination by LCMSMS test VITD23. Cynthia Sheehan MD LAB - BLOOD ORDER [facility] [place] [facility] [address] [facility], [address] [id number], [facility] [phone] * Phosphorus (02/15/2023 9:26 AM BUSINESS PLANNER) Phosphorus 2.8 2.5 - 4.5 mg/dL 02/15/2023 4:21 PM BUSINESS PLANNER [facility] Blood BLOOD SPECIMEN / Unknown Venipuncture / Unknown 02/15/2023 9:26 AM BUSINESS PLANNER 02/15/2023 9:27 AM BUSINESS PLANNER Cynthia Sheehan MD LAB - BLOOD ORDER [facility] [place] [address] [facility], [address] [address], [facility] [phone] * (ABNORMAL) Parathyroid Hormone Intact (02/15/2023 9:26 AM BUSINESS PLANNER) Pathologist [facility] Parathyroid Hormone Intact 94(H) 15 - 65 pg/mL 02/15/2023 4:06 PM BUSINESS PLANNER [facility] Blood BLOOD SPECIMEN / Unknown Venipuncture / Unknown 02/15/2023 9:26 AM BUSINESS PLANNER 02/15/2023 9:27 AM BUSINESS PLANNER Narrative [facility] - 02/15/2023 4:06 PM BUSINESS PLANNER This result was obtained with the [employer] Elecs[employer] PTH STAT assay. This reference range differs from PTH assays used in other [facility] laboratories. Cynthia Sheehan MD LAB - BLOOD ORDER [facility] [address] [facility], [address] [id number], [facility] [phone] * Magnesium (02/15/2023 9:26 AM BUSINESS PLANNER) [facility] Magnesium 2.1 1.7 - 2.3 mg/dL 02/15/2023 4:21 PM BUSINESS PLANNER [facility] Blood BLOOD SPECIMEN / Unknown Venipuncture / Unknown 02/15/2023 9:26 AM BUSINESS PLANNER 02/15/2023 9:27 AM BUSINESS PLANNER Cynthia Sheehan MD LAB - BLOOD ORDER [facility] [address] [facility], [address] [phone], [facility] [phone] * (ABNORMAL) Creatinine (02/15/2023 9:26 AM BUSINESS PLANNER) [facility] Creatinine 1.21(H) 0.51 - 0.95 mg/dL 02/15/2023 4:21 PM BUSINESS PLANNER [facility] GFR Estimate 52(L) >60 mL/min/1.7 3m2 02/15/2023 4:21 PM BUSINESS PLANNER [facility] Blood BLOOD SPECIMEN / Unknown Venipuncture / Unknown 02/15/2023 9:26 AM BUSINESS PLANNER 02/15/2023 9:27 AM BUSINESS PLANNER Cynthia Sheehan MD LAB - BLOOD ORDER [facility] [place] [address] [facility] [address], [address] [place] [address], [facility] [phone] * (ABNORMAL) Calcium (02/15/2023 9:26 AM BUSINESS PLANNER) Calcium 10.3(H) 8.6 - 10.0 mg/dL 02/15/2023 4:21 PM BUSINESS PLANNER [facility] Blood BLOOD SPECIMEN / Unknown Venipuncture / Unknown 02/15/2023 9:26 AM BUSINESS PLANNER 02/15/2023 9:27 AM BUSINESS PLANNER Cynthia Sheehan MD LAB - BLOOD ORDER [facility] [address] [facility], [address] [place] [address], [facility] [phone] from Last 3 Months Care Teams Vocational Training Instructor Relationship Specialty Start Date End Date Clarissa Hamm MD [facility] [address] [place] [address] PCP - General 08/07/22 Cynthia Sheehan MD [address] [address] Hospitalist Endocrinology, Diabetes, and Metabolism 04/24/22 Cynthia Sheehan MD [address] [address] Assigned Endocrinology Provider 08/11/22
--- OUTSIDE RECORDS SUMMARY | 2023-04-19 08:49 | XMS_ITS | Encounter Summary ---
Author Name Unknown Organization [place] Address [address] [facility] [place] [address] Care Team Providers Care Book Solicitor Name Role Phone Cynthia Sheehan MD Unavailable [phone] Clarissa Hamm MD Primary Care Provider + Cynthia Sheehan MD Unavailable [phone] Encounter Details Date Type Department Care Team (Latest Contact Info) Description 02/15/2023 Travel Social History Tobacco Use Types Packs/Day [...] st Contact Info) Description 05/27/2023 8:30 AM CORE SHAPER SIDES Virtual Visit [facility] [address] [place] [address] Cynthia Sheehan MD [address] [place], [place] [address] documented as of this encounter Visit Diagnoses Not on filedocumented in this encounter Care Teams Book Solicitor Relationship Specialty Start Date End Date Clarissa Hamm MD [facility] [address] [place] [address] PCP - General 08/07/22 Cynthia Sheehan MD [address] [facility] [address] [place], [place] [phone] Hospitalist Endocrinology, Diabetes, and Metabolism 04/24/22 Cynthia Sheehan MD [address] [place] [address] [address] [place], [place] [address] Assigned Endocrinology Provider 08/11/22 documented as of this encounter
--- OUTSIDE RECORDS SUMMARY | 2023-04-19 08:49 | XMS_ITS | Encounter Summary ---
Author Name Unknown Organization [place] Address [address] [place] [address] Care Team Providers Care Handkerchief Cutter Name Role Phone Cynthia Sheehan MD Unavailable Clarissa Hamm MD Primary Care Provider + Cynthia Sheehan MD Unavailable Encounter Details Date Type Department Care Team (Late st Contact Info) Description 02/16/2023 Telephone [facility] [address] [facility] [address] [place] [address] Cynthia Sheehan MD [address] [place], [place] [address] Social History Tobacco Use Types Packs/Day Years Used Date Smoking Tobacco: Never Assessed Adolescent Education Answer Date Record ed Getting School Help Needed Not on file 12/15 Sex and Gender Information Value Date Recorded Sex Assigned at Not on file Gender Identity Not on file Sexual Orientation Not on file documented as of this encounter Miscellaneous Notes * Telephone Encounter - Leonora Frausto RN - 02/18/2023 8:21 AM CST My chart sent. ULUS TUTOR * Telephone Encounter - Cynthia Sheehan MD - 02/16/2023 8:40 AM CALCULUS TUTOR Latest Ref Rng 02/15/2023 9:26 AM [facility]O [facility] Vitamin D, Total (25-Hydroxy) 20 - 50 ng/mL 26 Calcium 8.6 - 10.0 mg/dL 10.3 (H) Creatinine 0.51 - 0.95 mg/dL 1.21 (H) Magnesium 1.7 - 2.3 mg/dL 2.1 Parathyroid Hormone Intact 15 - 65 pg/mL 94 (H) Improving calcium levels and vitamin D levels after starting high-dose vitamin D replacement. She had vitamin D deficiency which has now resolved Recommend to continue to monitor and recheck labs few days prior to next appointment. She can continue nbpu-mee-qtrnedj vitamin D 1000 international units/day. ULUS TUTOR documented in this encounter Plan of Treatment Upcoming Encounters Date Type Department Care Team (Late st Contact Info) Description 05/27/2023 8:30 AM CALCULUS TUTOR Virtual Visit [facility] [address] [facility] [address] [place] [address] Cynthia Sheehan MD [address] [place] [address] Scheduled Orders Name Type Priority Associated Diagnoses Orde r Schedule Phosphorus Lab Routine Hyperparathyroidism (H) Expected: 05/19/2023, Expires: 12/13/2023 Magnesium Lab Routine Hyperparathyroidism (H) Expected: 05/19/2023, Expires: 12/13/2023 Parathyroid Hormone Intact Lab Routine Hyperparathyroidism (H) Expected: 05/19/2023, Expires: 12/13/2023 Vitamin D Deficiency Lab Routine Hyperparathyroidism (H24) Expected: 05/19/2023, Expires: 12/13/2023 Calcium Lab Routine Hyperparathyroidism (H24) Expected: 05/19/2023, Expires: 12/13/2023 Creatinine Lab Routine Hyperparathyroidism (H24) Expected: 05/19/2023, Expires: 12/13/2023 documented as of this encounter Visit Diagnoses Diagnosis Hyperparathyroidism (H24)- Primary Hyperparathyroidism, unspecified Hypercalcemia documented in this encounter Care Teams Handkerchief Cutter Relationship Specialty Start Date End Date Clarissa Hamm MD [facility] & [address] [address] PCP - General 08/07/22 Cynthia Sheehan MD [address] [facility] [address] [place], [place] [address] Hospitalist Endocrinology, Diabetes, and Metabolism 04/24/22 Cynthia Sheehan MD [address] [facility] [address] [place], [place] [address] Assigned Endocrinology Provider 08/11/22 documented as of this encounter
--- OUTSIDE RECORDS SUMMARY | 2023-04-19 08:49 | XMS_ITS | Encounter Summary ---
Author Name Unknown Organization [place] Address [address] [facility] [place] [address] Care Team Providers Care Correctional Officer Sergeant Name Role Phone Cynthia Sheehan MD Unavailable Clarissa Hamm MD Primary Care Provider + Cynthia Sheehan MD Unavailable [phone] Reason for Visit * Reason Comments Medication Refill Encounter Details Date Type Department Care Team (Late st Contact Info) Description 02/07/2023 Telephone [facility] [address] [facility] [address] [place] [address] Cynthia Sheehan MD [address] [place] [address] Medication Refill Social History Tobacco [...] encounter Miscellaneous Notes * Telephone Encounter - Maribeth Brady - 02/13/2023 9:52 AM CST Patient is scheduled for labs 02/15 L PROCESS SPECIALIST * Telephone Encounter - Kalina Will RN - 02/13/2023 8:04 AM LEGAL PROCESS SPECIALIST Pt did not have labs done. Pt needs labs now. L PROCESS SPECIALIST * Telephone Encounter - Leonora Frausto RN - 02/08/2023 8:03 AM CST Labs 02/12, f/up 05/2023 L PROCESS SPECIALIST * Telephone Encounter - Kalina Will RN - 02/07/2023 7:18 AM LEGAL PROCESS SPECIALIST Pt needs labs now and follow up first available. HENRY: 08/07/22: Plan: Discussed diagnosis, pathophysiology, management and treatment options of condition with pt. Labs as noted below. Further work up ( including possible NM Parathyroid scan) based on that. Requested Prescriptions Pending Prescriptions Disp Refills vitamin D2 (ERGOCALCIFEROL) 86876 units (1250 mcg) capsule [Pharmacy Med Name: VITAMIN D2 50,000IU (ERGO) CAP RX] 12 capsule 0 Sig: TAKE 1 CAPSULE BY MOUTH 1 TIME A WEEK There is no refill protocol information for this order L PROCESS SPECIALIST documented in this encounter Plan of Treatment Upcoming Encounters Date Type Department Care Team (Late st Contact Info) Description 05/27/2023 8:30 AM LEGAL PROCESS SPECIALIST Virtual Visit [facility] [address] [facility] [address] [place] [address] Cynthia Sheehan MD [address] [place] [address] documented as of this encounter Visit Diagnoses Diagnosis Hyperparathyroidism (H24) Hyperparathyroidism, unspecified documented in this encounter Care Teams Correctional Officer Sergeant Relationship Specialty Start Date End Date Clarissa Hamm MD [facility] & [address] [address] PCP - General 08/07/22 Cynthia Sheehan MD [address] [facility] [address] [place] [address] Hospitalist Endocrinology, Diabetes, and Metabolism 04/24/22 Cynthia Sheehan MD [address] [facility] [address] [place], [place] [address] Assigned Endocrinology Provider 08/11/22 documented as of this encounter
--- OUTSIDE RECORDS SUMMARY | 2023-04-19 08:50 | XMS_ITS | Encounter Summary ---
Author Name Unknown Organization [place] Address [address] [place] [address] Care Team Providers Care Varnisher Name Role Phone Cynthia Sheehan MD Unavailable [phone] No Ref-Primary, Physician Primary Care Provider Encounter Details Date Type Department Care Team (Latest Contact Info) Description 04/19/2022 Medical Correspondence [facility] [address] [place] [address] Outside, Provider [facility] Social History Tobacco Use Types Packs/Day Years Used Date Smoking Tobacco: Never Assessed Sex and Gender Information Value Date Recorded Sex Assigned at Not on file Gender Identity Not on file Sexual Orientation Not on file documented as of this encounter Plan of Treatment Upcoming Encounters Date Type Department Care Team (Late st Contact Info) Description 05/27/2023 8:30 AM INSTRUMENT/CONTROL TECHNICIAN Virtual Visit [facility] [place] [address] [place] [address] Cynthia Sheehan MD [address] [place] [address] documented as of this encounter Visit Diagnoses Not on filedocumented in this encounter Care Teams Varnisher Relationship Specialty Start Date End Date No Ref-Primary, Physician PCP - General 04/24/22 08/06/22 Cynthia Sheehan MD [address] [facility] 200 [place] [address] Hospitalist Endocrinology, Diabetes, and Metabolism 04/24/22 documented as of this encounter
--- OUTSIDE RECORDS SUMMARY | 2023-04-19 08:50 | XMS_ITS | Encounter Summary ---
Author Name Unknown Organization [place] Address [address] [facility] [place] [address] Care Team Providers Care Elderly Sitter Name Role Phone Cynthia Sheehan MD Unavailable [phone] No Ref-Primary, Physician Primary Care Provider Reason for Referral * Consultation (Routine) - Pending Review Specialty Diagnoses / Procedures Referred By Contoziel t Referred To Contact Endocrinology, Diabetes, and Metabolism Diagnoses Breast cancer (H) Rico Ramírez MD [facility] [address] [facility] [address] [place] [address] Referral ID Status Reason Start Date Expiration Date V isits Requested Visits Authorized [id number] Pending Review 04/24/2022 04/24/2023 1 1 Question Answer Reason for Referral: Other My Clinical Question Is: Calcium and PTH were elevated. Dr Sheehan or partner Scheduling Instructions: [place] will call you to coordinate your care as prescribed by the provider. If you don? t hear from a surgical device sales representative within 2 business days, please call [phone]. Comments Referred by: Dr Rico Ramírez @ [facility] , [facility] [facility] [place] will call you to coordinate your care as prescribed by the provider. If you don? t hear from a surgical device sales representative within 2 business days, please call [phone]. LOGY PROFESSOR Encounter Details Date Type Department Care Team (Late st Contact Info) Description 04/24/2022 Transcribe Orders GENERIC EXTERNAL DATA DEPARTMENT Provider, Generic External Data Breast cancer (H) (Primary Dx) Social History Tobacco Use Types Packs/Day Years Used Date Smoking Tobacco: Never Assessed Sex and Gender Information Value Date Recorded Sex Assigned at Not on file Gender Identity Not on file Sexual Orientation Not on file documented as of this encounter Plan of Treatment Upcoming Encounters Date Type Department Care Team (Late Contact Info) Description 05/27/2023 8:30 AM TOPOLOGY PROFESSOR Virtual Visit [facility] [address] [place] [phone] Cynthia Sheehan MD [address] [facility] [address] [place] [address] Scheduled Referrals Name Type Priority Associated Diagnoses Orde r Schedule Adult Endocrinology Food Service Supervisor Referral Referral Routine Breast cancer (H) Expected: 04/24/2022 (Approximate), Expires: 04/24/2023 documented as of this encounter Visit Diagnoses Diagnosis Breast cancer (H)- Primary Malignant neoplasm of breast (female), unspecified site documented in this encounter Care Teams Elderly Sitter Relationship Specialty Start Date End Date No Ref-Primary, Physician PCP - General 04/24/22 08/06/22 Cynthia Sheehan MD [address] [facility] [address] [place] [address] Hospitalist Endocrinology, Diabetes, and Metabolism 04/24/22 documented as of this encounter
--- OUTSIDE RECORDS SUMMARY | 2023-04-19 08:50 | XMS_ITS | Encounter Summary ---
Author Name Unknown Organization [place] Address [address] [facility] [place] [address] Care Team Providers Care Senior Ecologist Name Role Phone Cynthia Sheehan MD Unavailable [phone] Clarissa Hamm MD Primary Care Provider + Cynthia Sheehan MD Unavailable [phone] Encounter Details Date Type Department Care Team (Late st Contact Info) Description 08/17/2022 11:[address] [facility] [address] [place] [address] Hypercalcemia; Hyperparathyroidism (H) Social History Tobacco Use Types Packs/Day Years [...] Encounter Note - Cynthia Sheehan MD - 08/17/2022 11:30 AM CDT Labs/results noted. Please see telephone encounter dated 08/21/2022. documented in this encounter Plan of Treatment Upcoming Encounters Date Type Department Care Team (Late st Contact Info) Description 05/27/2023 8:30 AM [employer] MEDIA SPECIALIST Virtual Visit [facility] [address] [place] [address] Cynthia Sheehan MD [address] [place] [address] documented as of this encounter Procedures Procedure Name Priority Date/Time Associated Diagnosis Comments VITAMIN D DEFICIENCY SCREENING Routine 08/17/2022 11:21 AM CDT Hypercalcemia Hyperparathyroidism (H) PHOSPHORUS Routine 08/17/2022 11:21 AM CDT Hypercalcemia Hyperparathyroidism (H) PARATHYROID HORMONE INTACT Routine 08/17/2022 11:21 AM CDT Hypercalcemia Hyperparathyroidism (H) MAGNESIUM Routine 08/17/2022 11:21 AM CDT Hypercalcemia Hyperparathyroidism (H) CREATININE Routine 08/17/2022 11:21 AM CDT Hypercalcemia Hyperparathyroidism (H) CALCIUM Routine 08/17/2022 11:21 AM CDT Hypercalcemia Hyperparathyroidism (H) documented in this encounter Results * (ABNORMAL) Creatinine (08/17/2022 11:21 AM CDT) Creatinine 1.10(H) 0.51 - 0.95 mg/dL 08/17/2022 7:47 PM CDT [facility] GFR Estimate 58(L) >60 mL/min/1.7 3m2 08/17/2022 7:47 PM CDT [facility] Comment:eGFR calculated us2020 CKD-EPI equation. Blood BLOOD SPECIMEN / Unknown Venipuncture / Unknown 08/17/2022 11:21 AM CDT 08/17/2022 11:21 AM CDT Cynthia Sheehan MD LAB - BLOOD ORDER ANDREA LABORAT[facility] [place] [facility] [address] [facility], [address] [address], [facility] [phone] * (ABNORMAL) Calcium (08/17/2022 11:21 AM CDT) Calcium 11.1(H) 8.6 - 10.0 mg/dL 08/17/2022 7:47 PM CDT LABORATORY Blood BLOOD SPECIMEN / Unknown Venipuncture / Unknown 08/17/2022 11:21 AM CDT 08/17/2022 11:21 AM CDT Cynthia Sheehan MD LAB - BLOOD ORDER ANDREA Performing Organization Address City/Va Hospital/ZIP Co de Phone Number LABORATORY [facility] [address] [facility], [address] [address], [facility] [phone] * (ABNORMAL) Vitamin D Deficiency (08/17/2022 11:21 AM CDT) Vitamin D, Total (25-Hydroxy) 11(L) 20 - 75 ug/L 08/20/2022 11:17 AM CDT SPECIALTY CORE/PROT/ENDO Blood BLOOD SPECIMEN / Unknown Venipuncture / Unknown 08/17/2022 11:21 AM CDT 08/17/2022 11:21 AM CDT Narrative SPECIALTY CORE/PROT/ENDO - 08/20/2022 11:17 AM CDT Season, race, dietary intake, and treatment affect the concentration of 41-fuycpwm-Kqficed D. Values may decrease during winter months and increase during summer months. Values 20-29 ug/L may indicate Vitamin D insufficiency and values <20 ug/L may indicate Vitamin D deficiency. Vitamin D determination is routinely performed by an immunoassay specific for 25 hydroxyvitamin D3. ??If an individual is on vitamin D2(ergocalciferol) supplementation, please specify 25 OH vitamin D2 and D3 level determination by LCMSMS test VITD23. Cynthia Sheehan MD LAB - BLOOD ORDER ANDREA SPECIALTY CORE/PROT/ENDO Specialty Core/Prot/Endo [address] [facility], [address] [address] [phone] * (ABNORMAL) Parathyroid Hormone Intact (08/17/2022 11:21 AM CDT) Pathologist [facility] Parathyroid Hormone Intact 80(H) 15 - 65 pg/mL 08/17/2022 9:22 PM CDT [facility] Blood BLOOD SPECIMEN / Unknown Venipuncture / Unknown 08/17/2022 11:21 AM CDT 08/17/2022 11:21 AM CDT Narrative [facility] - 08/17/2022 9:22 PM CDT This result was obtained with the [employer] PTH STAT assay. This reference range differs from PTH assays used in other [facility] laboratories. Cynthia Sheehan MD LAB - BLOOD ORDER ANDREA Performing Organization Address City/Va Hospital/ZIP Co de Phone Number LABORATORY [facility] [place] [facility] [address] [facility], [address] [address], [facility] [phone] * Magnesium (08/17/2022 11:21 AM CDT) [facility] Magnesium 2.1 1.7 - 2.3 mg/dL 08/17/2022 7:47 PM CDT [facility] Blood BLOOD SPECIMEN / Unknown Venipuncture / Unknown 08/17/2022 11:21 AM CDT 08/17/2022 11:21 AM CDT Cynthia Sheehan MD LAB - BLOOD ORDER ANDREA [facility]AT[facility] [place] [facility] [address] [facility], [address] [address], [facility] [phone] * Phosphorus (08/17/2022 11:21 AM CDT) Phosphorus 2.7 2.5 - 4.5 mg/dL 08/17/2022 7:47 PM CDT [facility] Blood BLOOD SPECIMEN / Unknown Venipuncture / Unknown 08/17/2022 11:21 AM CDT 08/17/2022 11:21 AM CDT Cynthia Sheehan MD LAB - BLOOD ORDER ANDREA [facility] [place] [facility] [address] [facility] [address] [facility], [address] [place] [address], [facility] [phone] documented in this encounter Visit Diagnoses Diagnosis Hypercalcemia Hyperparathyroidism (H24) Hyperparathyroidism, unspecified documented in this encounter Care Teams Senior Ecologist Relationship Specialty Start Date End Date Clarissa Hamm MD [facility] [address] [place] [address] PCP - General 08/07/22 Cynthia Sheehan MD [address] [facility] [address] [place], [place] [address] Hospitalist Endocrinology, Diabetes, and Metabolism 04/24/22 Cynthia Sheehan MD [address] [facility] [address] [place] [address] Assigned Endocrinology Provider 08/11/22 documented as of this encounter
--- OUTSIDE RECORDS SUMMARY | 2023-04-19 08:50 | XMS_ITS | Clinical Summary ---
Author Name Unknown Organization [employer] [facility] Address [place], [place] [address] Care Team Providers Care Belt Buckle Maker Name Role Phone Clarissa Hamm MD Primary Care Provider + Allergies No known active allergies Medications Medication Sig Dispensed Refills Start Date End Date Status letrozole (FEMARA) 2.5 mg tabletIndications:[place] mass,Malignant neoplasm of left breast in female, estrogen receptor positive, unspecified site of breast (HC) Take 1 Tablet (2.5 mg) by mouth once daily. 30 Tablet 1 09/20/2020 Active Active Problems Problem Noted Date Diagnosed Date Acute respiratory distress s yndrome (ARDS) due to COVID-19 virus 09/12/2020 Anemia 09/12/2020 Breast mass Social History Tobacco Use Types Packs/Day Years Used Date Smoking Tobacco: Never Assessed Sex and Gender Information Value Date Recorded Sex Assigned at Not on file Gender Identity Not on file Sexual Orientation Not on file Obstetrics History Last Filed Vital Signs Vital Sign Reading Time Taken Comments Blood Pressure 151/73 09/20/2020 8:00 AM CDT Pulse 82 09/20/2020 8:00 AM CDT Temperature 36.8 ??C (98.2 ??F) 09/20/2020 8:00 AM CD T Respiratory Rate 16 09/20/2020 8:00 AM CDT [...] age 18+ 1983 Hepatitis C screening for ag e 18-79 1983 Tetanus booster 1985 Pap test for age 21-65 1986 Colonoscopy through age 75 2010 Lipids for age 45-75 2010 Mammogram for age 45-75 2010 Zoster (shingles) series for age 50+ (1 of 2) 2015 COVID-19 vaccine series (2022- season) 2022 01/26/2021, 12/29/2020 Influenza for age 50-64 11/23/2022 Pneumococcal series for age 6-64 Aged Out No longer eligible b ased on patient's age to complete this topic Additional Health Concerns Infection Onset Date Last Indicated COVID History Comment:Patient had positive COVID test on 09/10/20 Patient met COVID clearance criteria on 09/20/20. Patient no longer requires enhanced respiratory precautions. It is not recommended to collect additional COVID-19 tests until 90 days have passed since first positive test. Exception: patient develops new COVID-19 symptoms. 09/20/2020 09/20/2020 Advance Directives Latest Code Status on File Code Status Date Activated Date Inactivated Comments Full Code 09/10/2020 9:47 AM 09/20/2020 7:07 PM Question Answer Comments Code Status Discussion: Per Existing Order Care Teams Belt Buckle Maker Relationship Specialty Start Date End Date Clarissa Hamm MD [address] [place] [address] PCP - General Family Practice 09/10/20
--- OUTSIDE RECORDS SUMMARY | 2023-04-19 08:50 | XMS_ITS | Encounter Summary ---
Author Name Unknown Organization [place] Address [address] [facility] [place] [address] Care Team Providers Care Microbiology Teacher Name Role Phone Cynthia Sheehan MD Unavailable [phone] Clarissa Hamm MD Primary Care Provider + Reason for Visit * Reason Comments Video Visit New Patient * Consultation (Routine) - Pending Review Specialty Diagnoses / Procedures Referred By Poornima t Referred To Contact Endocrinology, Diabetes, and Metabolism Diagnoses Breast cancer (H) Rico Ramírez MD [facility] [address] [place] [address] Referral ID Status Reason Start Date Expiration Date V isits Requested Visits Authorized [id number] Pending Review 04/24/2022 04/24/2023 1 1 Encounter Details Date Type Department Care Team (Late st Contact Info) Description 08/07/2022 3:30 PM CDT Virtual Visit [facility] [address] [place] [address] Rico Ramírez MD [facility] [address] [place] [address] Cynthia Sheehan MD [address] [place], [place] [id number] Hypercalcemia (Primary Dx); Hyperparathyroidism (H) Social History Tobacco Use Types Packs/Day Years Used Date Smoking Tobacco: Never Assessed Sex and Gender Information Value Date Recorded Sex Assigned at Not on file Gender Identity Not on file Sexual Orientation Not on file documented as of this encounter Patient Instructions * Patient Instructions* Cynthia Sheehan MD - 08/07/2022 3:30 PM CDT [facility] Dr Sheehan, Endocrinology Department [place] [address] [address] [facility]. [address] [place] [address] Appointment [phone] [place]: Saturday - Labs needed. Further work up based on that-- including urine collection and scan. documented in this encounter Progress Notes * Cynthia Sheehan MD - 08/07/2022 3:30 PM CDT THIS IS A VIDEO VISIT: Phone call visit/virtual visit encounter: Name of patient: Leonarda Shanks Date of encounter: 08/07/2022 Time of start of video visit: 3:30 Video started: 3:41 Video ended: 3:53 Provider location: working from home/ [facility] Patient location: patients home. Mode of transmission: Attensa video/ Fontself Verbal consent: obtained before starting visit. Pt is agreeable. The patient has been notified of following: This VIDEO visit will be conducted via a call between you and your physician/provider. We have found that certain health care needs can be provided without the need for a physical exam. This servicelets us provide the care you need with a short phone conversation. If a prescription is necessary we can send it directly to your pharmacy. If lab work is needed we can place an order for that and you can then stop by our lab to have the test done at a later time. With new updates with flood virus patient might be billed as clinic visit. If during the course of the call the physician/provider feels a telephone visit is not appropriate,you will not be charged for this service. Past medical history, social history, family history, allergy and medications were reviewed and updated as appropriate. Reviewed pertinent labs, notes, imaging studies personally. Name: Leonarda Shanks Seen in consultation with Clarissa Hamm for hypercalcemia. Referral note says breast cancer? HPI: Leonarda Shanks is a 57 year old female who presents for the evaluation of hypercalcemia. H/o metastatic breast cancer-- followed by . Limited records from her office available. History of left breast cancer- ER positive, MD positive invasive lobular carcinoma. Bone marrow biopsy 2020 revealed metastasis. She started Zometa in 03/2021 and getting Zometa every 3 months. She is getting bone scan. Bone scan in March 2022 showed evidence of response matching clinical response in left breast. Noted to have high calcium level. PTH level was also elevated-no records to review. Following that she was referred to endocrinology. History of Cancer: + breast cancer, diagnosed in August 2020. Thiazide Diuretic:No [place] use:No Family History of pituitary adenoma, pancreas tumors, Cash-Tompkins syndrome, pheochromocytoma.No Kidney stones:No Fractures: No Abdominal Pain:No Cramps: No Constipation: No Muscle Aches or pains: No Muscle twitches: No Nausea and vomiting: No Loss of appetite: No Excessive thirst: No Muscle weakness: No Confusion Lethargy and fatigue: No Weight: Stable Average Daily Calcium intake: 1-2 servings of dairy/day. Ca and Vit D supplementation: No PMH/PSH: Breast cancer Family Hx: Mother: breast cancer Sister: hyperparathyroidism Social Hx: Social History Socioeconomic History ??? Marital status: Spouse name: Not on file ??? Number of children: Not on file ??? Years of education: Not on file ??? Highest education level: Not on file Occupational History ??? Not on file Tobacco Use ??? Smoking status: Not on file ??? Smokeless tobacco: Not on file Substance and Sexual Activity ??? Alcohol use: Not on file ??? Drug use: Not on file ??? Sexual activity: Not on file Other Topics Concern ??? Not on file Social History Narrative ??? Not on file Social Determinants of Health Financial Resource Strain: Not on file Food Insecurity: Not on file Transportation Needs: Not on file Physical Activity: Not on file Stress: Not on file Social Connections: Not on file Intimate Partner Violence: Not on file Housing Stability: Not on file MEDICATIONS: has a current medication list which includes the following prescription(s): letrozole, verzenio, zoledronic acid, and abemaciclib. ROS ROS: 10 point ROS neg other than the symptoms noted above in the HPI. Physical Exam VS: There were no vitals taken for this visit. GENERAL: healthy, alert and no distress EYES: Eyes grossly normal to inspection, conjunctivae and sclerae normal ENT: no nose swelling, nasal discharge. Thyroid: no apparent thyroid nodules RESP: no audible wheeze, cough, or visible cyanosis. No visible retractions or increased work of breathing. Able to speak fully in complete sentences. ABDO: not evaluated. EXTREMITIES: no hand tremors. NEURO: Cranial nerves grossly intact, mentation intact and speech normal SKIN: No apparent skin lesions, rash or edema seen PSYCH: mentation appears normal, affect normal/bright, judgement and insight intact, normal speech and appearance well-groomed LABS: Calcium: Creatinine: No results found for: CR PTH: Vitamin D: No results found for: VITDT DEXA: Available records, labs and images from outside clinic were personally reviewed. All pertinent notes, labs, and images personally reviewed by me. A/P Ms.Deanna Catarino Shanks is a 57 year old here for the evaluation of: 1. Hypercalcemia and hyperparathyroidism: In the differential diagnosis of hypercalcemia, primary hyperparathyroidism is the most common cause. It is important to distinguish readily between primary hyperparathyroidism and other causes of hypercalcemia. History of breast cancer with metastasis to bones. She is getting Zometa every 3 months through oncology. Not on thiazide diuretic. No family history of MEN syndrome. Plan: Discussed diagnosis, pathophysiology, management and treatment options of condition with pt. Labs as noted below. Further work up ( including possible [place] Parathyroid scan) based on that. Plan: Phosphorus, Magnesium, Parathyroid Hormone Intact, Vitamin D Deficiency, Calcium, Creatinine Exceptions to the rule that patients with hypercalcemia and elevated PTH levels have primary hyperPTH include two medications, lithium and thiazide diuretics. Actually, many of these patients do haveprimary hyperparathyroidism but the only way to be sure is to withdraw the medication and to monitor the serum calcium over the next 3-6 months. HEREDITARY HYPERPARATHYROID STATES Multiple Endocrine Neoplasia (MEN), both type 1 and type II. Primary hyperparathyroidism is often the first and is the most common of the endocrinopathies in MEN1, reaching nearly 100% penetrance by the age of 50. In MEN I, the other tumors, besides the parathyroids, that can develop are those of pancreas and anterior pituitary glands. Involvement of two of the three glands confirms the presence of MEN I. MEN IIa, in which hyperparathyroidism can be associated with medullary thyroid cancer. Hyperparathyroidism jaw tumor syndrome (AD), is associated with PHPT and fibromas in the mandible or the maxilla. Unlike FHH or the MEN I and II, parathyroid carcinoma is more common in hyperparathyroidism jaw tumor syndrome. Familial hypocalciuric hypercalcemia (FHH). This presentation that can be confused with the most common form of primary hyperparathyroidism, namely the sporadic isolated disorder. FHH is also known as Familial Benign Hypercalcemia because it is generally asymptomatic and does not require treatment.Lab work to differentiate FHH from primary PTH Hypercalcemia, Hypocalciuria, Normal to high levels of PTH, Hypermagnesemia, Calcium/creatinine clearance ratio <0.01, and Genetic testing for mutations in CASR. The serum calcium determination is typically not greater than 1 mg/dl above the upper limits of normal. The serum phosphorus is in the lower range of normal with only approximately 25% of patients showing phosphorus levels that are frankly low. Total alkaline phosphatase activity is in the high normal range as is the case also for more specific markers of bone turnover and, bone-specific alkalinephosphatase activity. If the normal concentration of 25-hydroxyvitamin D level is taken to be >30 ng/ml, then most patients with primary hyperparathyroidism will have low levels. In contrast, the 1,25-dihydroxyvitamin D level tends to be in the upper range of normal and, in fact, frankly elevated in 25% of patients with primary hyperparathyroidism. Guidelines for parathyroid surgery in asymptomatic primary hyperparathyroidism: Serum Calcium >1.0 mg/dl (0.25 mmol/L) above normal Creatinine Clearance (calculated) Below 60m1/min /1.73 m2) Bone Mineral Density T score < -2.5 SD at spine, hip (total or femoral neck) or radius (distal 1/3 site) or presence of fragility fracture Age Age < 50 years PARATHYROID GLAND IMAGING Pre- operative imaging is of value prior to surgery in the localization of abnormal parathyroid tissue . The diagnosis of PHPT is based on the biochemical findings and is not affected by the results of the imaging studies. Sestamibi imaging is of value in localizing abnormal parathyroid tissue. Thesensitivity and specificity varies among institutions. All questions were answered. The patient indicates understanding of the above issues and agrees with the plan set forth. Follow-up: As noted in AVS Cynthia Sheehan MD Endocrinology [facility] August 07, 2022 CC: Clarissa Hamm Answers for HPI/ROS submitted by the patient on 08/07/2022 General Symptoms: No Skin Symptoms: No HENT Symptoms: No EYE SYMPTOMS: No HEART SYMPTOMS: No LUNG SYMPTOMS: No INTESTINAL SYMPTOMS: No URINARY SYMPTOMS: No GYNECOLOGIC SYMPTOMS: No BREAST SYMPTOMS: No SKELETAL SYMPTOMS: No BLOOD SYMPTOMS: No NERVOUS SYSTEM SYMPTOMS: No MENTAL HEALTH SYMPTOMS: No documented in this encounter Nursing Notes * Jodi Serra - 08/07/2022 3:30 PM CDT Patient reports she takes letrozole at night and notes the verzenio is twice a day at 7 am and 7 pm(150 mg each time). Please remove the 100 mg tablet of verzenio off patient's chart, VF accidentally added it. Is the patient currently in the state of [place]? YES Visit mode:VIDEO If the visit is dropped, the patient can be reconnected by: VIDEO VISIT: Send to e-mail at: [email or web address] Will anyone else be joining the visit? NO not that patient mentioned during rooming process call. How would you like to obtain your AVS? MyChart Are changes needed to the allergy or medication list? YES: See note above Reason for visit: Video Visit (New Patient ) documented in this encounter Plan of Treatment Upcoming Encounters Date Type Department Care Team (Late st Contact Info) Description 05/27/2023 8:30 AM RETAIL GROCER Virtual Visit [facility] [address] [place] [phone] Cynthia Sheehan MD [address] [place] [address] documented as of this encounter Results * (ABNORMAL) Creatinine (08/17/2022 11:21 AM CDT) Pathologist [facility] Creatinine 1.10(H) 0.51 - 0.95 mg/dL 08/17/2022 7:47 PM CDT [facility] GFR Estimate 58(L) >60 mL/min/1.7 3m2 08/17/2022 7:47 PM CDT [facility] Comment:eGFR calculated usin 2020 CKD-EPI equation. Blood BLOOD SPECIMEN / Unknown Venipuncture / Unknown 08/17/2022 11:21 AM CDT 08/17/2022 11:21 AM CDT Cynthia Sheehan MD LAB - BLOOD ORDER [facility] [address] [facility], [address] [address], [facility] [[email or web address]] [phone] * (ABNORMAL) Calcium (08/17/2022 11:21 AM CDT) [facility] Calcium 11.1(H) 8.6 - 10.0 mg/dL 08/17/2022 7:47 PM CDT [facility] Blood BLOOD SPECIMEN / Unknown Venipuncture / Unknown 08/17/2022 11:21 AM CDT 08/17/2022 11:21 AM CDT Cynthia Sheehan MD LAB - BLOOD ORDER [facility] Core Lab [address] [facility], [address] [address], [facility] [[email or web address]] [phone] * (ABNORMAL) Vitamin D Deficiency (08/17/2022 11:21 AM CDT) [facility] Vitamin D, Total (25-Hydroxy) 11(L) 20 - 75 ug/L 08/20/2022 11:17 AM CDT SPECIALTY CORE/PROT/ENDO Blood BLOOD SPECIMEN / Unknown Venipuncture / Unknown 08/17/2022 11:21 AM CDT 08/17/2022 11:21 AM CDT Narrative SPECIALTY CORE/PROT/ENDO - 08/20/2022 11:17 AM CDT Season, race, dietary intake, and treatment affect the concentration of 66-aeqgfpa-Qpgqhzk D. Values may decrease during winter months [...] ORDER ANDREA SPECIALTY CORE/PROT/ENDO Specialty Core/Prot/Endo [address] [facility], [address] [phone] * (ABNORMAL) Parathyroid Hormone Intact (08/17/2022 11:21 AM CDT) Pathologist [facility] Parathyroid Hormone Intact 80(H) 15 - 65 pg/mL 08/17/2022 9:22 PM CDT [facility] Blood BLOOD SPECIMEN / Unknown Venipuncture / Unknown 08/17/2022 11:21 AM CDT 08/17/2022 11:21 AM CDT Narrative [facility] - 08/17/2022 9:22 PM CDT This result was obtained with the [employer] PTH STAT assay. This reference range differs from PTH assays used in other [facility] laboratories. Cynthia Sheehan MD LAB - BLOOD ORDER [facility] [place] [facility] [address] [facility], [address] [address], [facility] [[email or web address]] [phone] * Magnesium (08/17/2022 11:21 AM CDT) Magnesium 2.1 1.7 - 2.3 mg/dL 08/17/2022 7:47 PM CDT [facility] Blood BLOOD SPECIMEN / Unknown Venipuncture / Unknown 08/17/2022 11:21 AM CDT 08/17/2022 11:21 AM CDT Cynthia Sheehan MD LAB - BLOOD ORDER ANDREA [facility] [place] [facility] [address] [facility], [address] [address], [facility] [[email or web address]] [phone] * Phosphorus (08/17/2022 11:21 AM CDT) Phosphorus 2.7 2.5 - 4.5 mg/dL 08/17/2022 7:47 PM CDT [facility] Blood BLOOD SPECIMEN / Unknown Venipuncture / Unknown 08/17/2022 11:21 AM CDT 08/17/2022 11:21 AM CDT Cynthia Sheehan MD LAB - BLOOD ORDER [facility] Core Lab [address] [facility], [address] [address], [facility] [[email or web address]] [phone] documented in this encounter Visit Diagnoses Diagnosis Hypercalcemia- Primary Hyperparathyroidism (H24) Hyperparathyroidism, unspecified documented in this encounter Care Teams Microbiology Teacher Relationship Specialty Start Date End Date Clarissa Hamm MD [facility] [address] [place] [address] PCP - General 08/07/22 Cynthia Sheehan MD [address] [address] Hospitalist Endocrinology, Diabetes, and Metabolism 04/24/22 documented as of this encounter
--- OUTSIDE RECORDS SUMMARY | 2023-04-19 08:50 | XMS_ITS | Encounter Summary ---
Author Name Unknown Organization [place] Address [address] [facility] [place] [address] Care Team Providers Care Care Assistant Name Role Phone Cynthia Sheehan MD Unavailable Clarissa Hamm MD Primary Care Provider + Cynthia Sheehan MD Unavailable [phone] Reason for Visit * Reason Onset Date Comments Appointment 08/09/2022 Encounter Details Date Type Department Care Team (Late st Contact Info) Description 08/09/2022 Telephone [facility] [address] [place] [address] Cynthia Sheehan MD [address] [place] [address] Appointment Social History Tobacco Use Types Packs/Day Years Used Date Smoking Tobacco: Never Assessed Sex and Gender Information Value Date Recorded Sex Assigned at Not on file Gender Identity Not on file Sexual Orientation Not on file documented as of this encounter Miscellaneous Notes * Telephone Encounter - Radha Resendiz - 08/13/2022 4:11 PM CDT Lab appt scheduled. * Telephone Encounter - Leonora Frausto RN - 08/13/2022 4:08 PM CDT No * Telephone Encounter - Radha Resendiz - 08/13/2022 4:02 PM CDT Does pt need to be fasting for labs? * Telephone Encounter - Jodi Serra - 08/09/2022 11:46 AM CDT -[facility] Dr Sheehan, Endocrinology Department ?? [facility] [place] [address] [address] [facility] [address] [place] [address] Appointment [phone] [place]: Saturday - ?? Labs needed. Further work up based on that-- including urine collection and scan. Tool Filer Hand tried to contact patient to schedule follow up per Dr. Sheehan's chart note above, but was unable to reach the patient. Tool Filer Hand left a generic message for patient to call back. If patient calls back, please assist with scheduling follow up per provider notes. Left Voicemail (1st Attempt) for the patient to call back and schedule the following: Appointment type: Lab Provider: Lab Return date: No specific date noted from provider Specialty phone number: [phone] Additional appointment(s) needed: Scan per chart note, unsure of specifics though as comic writer does not see an active order. Jodi Bahena Virtual Visit Gas Appliance Servicer Helper 11:51 AM August 09, 2022 documented in this encounter Plan of Treatment Upcoming Encounters Date Type Department Care Team (Late st Contact Info) Description 05/27/2023 8:30 AM ELECTRONIC MAINTENANCE SUPERVISOR Virtual Visit [place] [address] [place] [phone] Cynthia Sheehan MD [address] [place] [address] documented as of this encounter Visit Diagnoses Not on filedocumented in this encounter Care Teams Care Assistant Relationship Specialty Start Date End Date Clarissa Hamm MD [facility] & [address] [address] PCP - General 08/07/22 Cynthia Sheehan MD [address] [place] [address] Hospitalist Endocrinology, Diabetes, and Metabolism 04/24/22 Cynthia Sheehan MD [address] [place] [address] Assigned Endocrinology Provider 08/11/22 documented as of this encounter
--- NOTE | 2023-04-19 09:00 | CRLHL7_ITS ---
For Patients: As a result of the Century Cures Act, medical imaging exams and procedure reports are released immediately into your electronic medical record. You may view this report before your referring provider. If you have questions, please contact your health care provider. INDICATION: Inflammatory breast cancer on the left TECHNIQUE: Volumetric helical scanning of the chest, abdomen and pelvis was performed with 101 cc of Isovue 370 contrast material IV. Coronal and sagittal reconstructions were obtained. COMPARISON: Chest/abdomen/pelvis CT scans of 10/09/2022, 04/13/2022 and 09/04/2021 FINDINGS: CHEST: The left breast is unchanged in comparison to the previous examination. No new/suspicious pulmonary nodule is identified. An unchanged, noncalcified 2 mm left upper lobe apical nodule is demonstrated on image 14 of series 3. No infiltrate, airway abnormality or pleural effusion is demonstrated. No axillary, mediastinal or hilar adenopathy is apparent. Several stable, mildly prominent left axillary lymph nodes are again demonstrated and are unchanged. The heart is normal in size. Calcified coronary arterial plaque is again demonstrated. ABDOMEN/PELVIS: Fatty change is demonstrated in the liver. The liver is normal in size and shape. The bile ducts are within normal limits. No lymphadenopathy is evident. No free fluid is demonstrated. The spleen, adrenal glands and pancreas are negative. The kidneys are unremarkable. The bowel is negative. The uterus and ovaries are negative. An Essure devices again noted adjacent to the right uterine fundus, as before. Unchanged sclerosis in the anterior right femoral head is demonstrated along with several stable sclerotic foci in the right ilium. No new blastic or lytic bone lesion is evident. IMPRESSION: 1. Unchanged left breast and stable, mildly prominent left axillary lymph nodes. No new metastatic lesion identified. 2. Stable sclerosis in the anterior right femoral head and right ilium. 3. Fatty liver. 4. Coronary artery disease. Please note that all CT scans at this facility use dose modulation, iterative reconstruction, and/or weight-based dosing when appropriate to reduce radiation dose to as low as reasonably achievable. Dictated by Karthik Layne MD @ 04/19/2023 2:19:45 PM (Electronically Signed)
== END 2023-04-19 08:47 | disposition home or self-care (01) ==
LOC: CT 08:46
PROVIDERS: PCP Family Medicine; Visit Provider Internal Medicine Hematology & Oncology
DX: C50.812 Malignant neoplasm of overlapping sites of left female breast (principal); K76.0 Fatty (change of) liver, not elsewhere classified; I25.10 Atherosclerotic heart disease of native coronary artery without angina pectoris
CPT/HCPCS: 71260; 74177; Q9967

== ENCOUNTER 2023-09-11 12:25 | Outpatient (CLI) | payer OTHER, SELFPAY ==
--- OUTSIDE RECORDS SUMMARY | 2023-09-11 12:27 | XMS_ITS | Encounter Summary ---
Author Organization [place] Address [address] [facility] [facility] [place] [address] Care Team Providers Care Dump Operator Name Role Phone Cynthia Sheehan MD Unavailable Clarissa Hamm MD Primary Care Provider + Cynthia Sheehan MD Unavailable Encounter Details Date Type Department Care Team (Late st Contact Info) Description 09/02/2023 Telephone [facility] [address] [place] [address] Cynthia Sheehan MD [address] [place], [place] [address] Social History Tobacco Use Types Packs/Day Years Used Date Smoking Tobacco: Never Passive Smoke Exposure: Never Smokeless Tobacco: Never PHQ-2 Answer Date Recorded PHQ-2 Score 0 09/05/2023 Adolescent Education Answer Date Record ed Getting School Help Needed Not on file 12/15 Sex and Gender Information Value Date Recorded Sex Assigned at Not on file Gender Identity Not on file Sexual Orientation Not on file documented as of this encounter Miscellaneous Notes * Telephone Encounter - Radha Resendiz - 09/04/2023 3:21 PM CDT Appointment scheduled * Telephone Encounter - Cynthia Sheehan MD - 09/04/2023 3:02 PM CDT Offer 9:00 AM slot on 09/05/2023-- video OK. Currently it is open. * Telephone Encounter - María Albright - 09/04/2023 12:50 PM CDT Weatherization Specialist tried to schedule per MYC message. Patient is not available at time sent in my chart message, patient stated she is free on 09/05/23 from 8am-2pm or available on Saturday09/06/23 all day. * Telephone Encounter - Radha Resendiz - 09/04/2023 9:02 AM CDT [facility] Please help schedule follow up 09/05/23 at 3:30 ( add on)- video OK. * Telephone Encounter - Cynthia Sheehan MD - 09/02/2023 5:39 PM CDT IMPRESSION: Parathyroid adenoma just posterior and inferior to the left thyroid lobe. Last visit 05/2023. Please help schedule follow up 09/05/23 at 3:30 ( add on)- video OK. documented in this encounter Plan of Treatment Upcoming Encounters Date Type Department Care Team (Late st Contact Info) Description 09/17/2023 3:15 PM CDT Office Visit [facility] [address] [place] [phone] Karla Mayen MD [facility] [address] [place] [address] 10/11/2023 1:00 PM CDT Office Visit [facility] [address] [place] [address] [place] [address] [place] [address] documented as of this encounter Visit Diagnoses Not on filedocumented in this encounter Care Teams Dump Operator Relationship Specialty Start Date End Date Clarissa Hamm MD [facility] [address] [place] [address] PCP - General 08/07/22 09/09/23 Cynthia Sheehan MD [address] [facility] [address] [place], [place] [address] Hospitalist Endocrinology, Diabetes, and Metabolism 04/24/22 Cynthia Sheehan MD [address] [address] [place], [place] [address] Assigned Endocrinology Provider 08/11/22 documented as of this encounter
--- OUTSIDE RECORDS SUMMARY | 2023-09-11 12:27 | XMS_ITS | Referral Summary ---
Author Organization [place] Address [address] [facility] [place] [address] Care Team Providers Care Propulsion Systems Engineer Name Role Phone Cynthia Sheehan MD Unavailable Cynthia Sheehan MD Unavailable Trina Carbajal MD Primary Care Provider Encounters Date Type Department Care Team Description 09/10/2023 Travel 09/10/2023 4:00 PM CDT Office Visit [address] [address] Trina Carbajal MD Lipid screening (Primary Dx); Benign essential hypertension; Visit for screening mammogram; Screen for colon cancer; Cervical cancer screening 09/09/2023 Travel 09/05/2023 9:00 AM CDT Virtual Visit [facility] [address] [place] [phone] Cynthia Sheehan MD Hyperparathyroidism (H24) (Primary Dx); Hypercalcemia 09/02/2023 Telephone [facility] [address] [place] [phone] Cynthia Sheehan MD 09/02/2023 Travel 09/02/2023 10:27 AM CDT - 09/02/2023 11:59 PM CDT Hospital Encounter [facility] [address] [address] Cynthia Sheehan MD Discharge Disposition: Home or Self Care 09/02/2023 10:26 AM CDT Hospital Encounter [facility] [address] [address] Cynthia Sheehan MD Discharge Disposition: Home or Self Care 09/02/2023 8:50 AM CDT - 09/02/2023 10:25 AM CDT Hospital Encounter [facility] [address] [address] Cynthia Sheehan MD Hyperparathyroidism (H24); Hypercalcemia Discharge Disposition: Home or Self Care 09/01/2023 Travel 08/08/2023 MyC Medical Advice [address] [place] [phone] Leonora Frausto RN 08/07/2023 Telephone [facility] [address] [facility] [address] [place] [phone] Cynthia Sheehan MD 08/05/2023 Travel 08/05/2023 4:00 PM CDT Lab [facility] [address] [place] [phone] Hyperparathyroidism (H24); Hypercalcemia 07/19/2023 Travel 07/19/2023 4:01 PM CDT - 07/19/2023 11:59 PM CDT Hospital Encounter [facility] [address] [place] [phone] Janine Will NP Malignant neoplasm of overlapping sites of left female breast (H); Wheezing; Chronic cough Discharge Disposition: Home or Self Care from Last 3 Months Allergies Active Allergy Reactions Criticality Noted Date Comments Clindamycin Dermatitis,Hives,Itching,Rash,Swelling Low 08/07/2022 Latex Dermatitis 08/07/2022 Medications Medication Sig Dispensed Refills Start Date End Date Status Zoledronic Acid (ZOMETA IV) 04/08/2021 Active letrozole (FEMARA) 2.5 MG tablet Take 1 tablet by mouth daily at 2 pm 06/30/2022 Active VERZENIO 150 MG tablet 08/05/2022 Active fexofenadine (CAROL) 180 MG tablet Take 1 tablet by mouth 07/19/2023 Active amLODIPine (NORVASC) 10 MG tabletIndications: Benign essential hypertension Take 1 tablet (10 mg) by mouth daily 90 tablet 09/10/2023 Active abemaciclib (VERZENIO) 100 MG tablet 01/09/2021 4 Discontinued(T herapy completed (No AVS)) vitamin D2 (ERGOCALCIFEROL) 29443 units (1250 mcg) capsuleIndications :Hyperparathyroidi sm (H24) TAKE 1 CAPSULE BY MOUTH 1 TIME A WEEK 12 capsule 11/12/2022 4 Discontinued(T herapy completed (No AVS)) amLODIPine (NORVASC) 5 MG tablet Take 1 tablet by mouth 07/18/2023 4 Discontinued(T herapy completed (No AVS)) Active Problems Problem Noted Date Diagnosed Date Hyperparathyroidism (H24) 08/07/2022 Hypercalcemia 08/07/2022 Breast cancer 09/11/2020 Immunizations Name Administration Dates Next Due TDAP (Adacel,Boostrix) 08/03/2011 Social History Tobacco Use Types Packs/Day Years Used Date Smoking Tobacco: Never Passive Smoke Exposure: Never Smokeless Tobacco: Never Tobacco Cessation:Counseling Given: Not Answered Alcohol Use Standard Drinks/Week Comments Not Currently 0 (1 standard drink = 0.6 oz pur e alcohol) PHQ-2 Answer Date Recorded PHQ-2 Score 0 09/05/2023 Adolescent Education Answer Date Record ed Getting School Help Needed Not on file 12/15 Food Insecurity Answer Date Recorded Within the past 12 months, d id you worry that your food would run out before you got money to buy more? No 09/09/2023 Within the past 12 months, d id the food you bought just not last and you didn? t have money to get more? No 09/09/2023 Housing Stability Answer Date Recorded Do you have housing? (Housin g is defined as stable permanent housing and does not include staying ouside in a car, in a tent, in an abandoned building, in an overnight retirement, or couch-surfing.) Yes 09/09/2023 Are you worried about losing your housing? No 09/09/2023 Financial Resource Strain Answer Date R ecorded Within the past 12 months, h ave you or your family members you live with been unable to get utilities (heat, electricity) when it was really needed? No 09/09/2023 Transportation Needs Answer Date Record ed Within the past 12 months, h as lack of transportation kept you from medical appointments, getting your medicines, non-medical meetings or appointments, work, or from getting things that you need? No 09/09/2023 Interpersonal Safety Answer Date Record ed Do you feel physically and e motionally safe where you currently live? Yes 09/10/2023 Within the past 12 months, h ave you been hit, slapped, kicked or otherwise physically hurt by someone? No 09/10/2023 Within the past 12 months, h ave you been humiliated or emotionally abused in other ways by your partner or ex-partner? No 09/10/2023 Sex and Gender Information Value Date Recorded Sex Assigned at Not on file Gender Identity Not on file Sexual Orientation Not on file Last Filed Vital Signs Vital Sign Reading Time Taken Comments Blood Pressure 160/90 09/10/2023 4:14 PM CDT Pulse 90 09/10/2023 3:45 PM CDT Temperature 36.8 ??C (98.2 ??F) 09/10/2023 3:45 PM CD T Respiratory Rate 16 09/10/2023 3:45 PM CDT Oxygen Saturation 98% 09/10/2023 3:45 PM CDT Inhaled Oxygen Concentration - - Weight 100.3 kg (221 lb 3.2 oz) 09/10/2023 3:45 PM CDT Height 157.5 cm (5' 2) 09/10/2023 3:45 PM CDT Body Mass Index 40.46 09/10/2023 3:45 PM CDT Plan of Treatment Upcoming Encounters Date Type Department Care Team (Late st Contact Info) Description 09/17/2023 3:15 PM CDT Office Visit [facility] [place] [address] [place] [phone] Karla Mayen MD [facility] [address] [place], [place] [phone] 10/11/2023 1:00 PM CDT Office Visit [facility] [address] [place] [phone] [place] [address] [place] [address] Procedures Procedure Name Priority Date/Time Associated Diagnosis Comments NM PARATHYROID PLANAR W/SPECT & CT DUAL Routine 09/02/2023 1:40 PM CDT Hyperparathyroidism (H24) Hypercalcemia CREATININE Routine 08/05/2023 4:04 PM CDT Hyperparathyroidism (H24) CALCIUM Routine 08/05/2023 4:04 PM CDT Hyperparathyroidism (H24) VITAMIN D DEFICIENCY SCREENING Routine 08/05/2023 4:04 PM CDT Hyperparathyroidism (H24) PARATHYROID HORMONE INTACT Routine 08/05/2023 4:04 PM CDT Hyperparathyroidism (H24) MAGNESIUM Routine 08/05/2023 4:04 PM CDT Hyperparathyroidism (H24) PHOSPHORUS Routine 08/05/2023 4:04 PM CDT Hyperparathyroidism (H24) XR CHEST 2 VIEWS STAT 07/19/2023 4:10 PM CDT Malignant neoplasm of overlapping sites of left female breast (H) Wheezing Chronic cough from Last 3 Months Results * NM Parathyroid Planar w/Spect & CT Dual (09/02/2023 1:40 PM CDT) Anatomical Region Laterality Modality Neck Nuclear Medicine 09/02/2023 1:40 PM CDT Impressions 09/02/2023 2:10 PM CDT IMPRESSION: Parathyroid adenoma just posterior and inferior to the left thyroid lobe. Narrative 09/02/2023 2:10 PM CDT EXAM: PR PARATHYROID PLANAR W/SPECT and CT DUAL LOCATION: [facility] DATE: 09/02/2023 INDICATION: ??Hyperparathyroidism (H24), Hypercalcemia COMPARISON: None. TECHNIQUE: 583 uCi I-123, oral ingestion. Following an appropriate interval 26.5 mCi Tc99m sestamibi, IV. Dual isotope I and Tc planar and SPECT/CT neck and upper chest images for tumor localization with computer-generated subtraction. FINDINGS: Delayed phase and subtraction images demonstrate a discordant focus of persistent radiotracer activity just posterior and inferior to the left thyroid lobe, corresponding to a 1.3 x 1.4 cm low-attenuation nodule on correlative CT (series 1007, image 58), consistent with site of suspected parathyroid adenoma. Normal radiotracer uptake elsewhere in the head and neck with physiologic uptake in the thyroid and salivary glands. No additional ectopic focus of uptake. Additional findings on low-dose noncontrast CT: Mild senescent intracranial changes. Mild mucosal thickening scattered paranasal sinuses. Mild atherosclerotic calcifications including the coronary arteries. Procedure Note Arjun Ferrara MD - 09/02/2023 EXAM: PR PARATHYROID PLANAR W/SPECT and CT DUAL LOCATION: [facility] DATE: 09/02/2023 INDICATION: Hyperparathyroidism (H24), Hypercalcemia COMPARISON: None. TECHNIQUE: 583 uCi I-123, oral ingestion. Following an appropriateinterval 26.5 mCi Tc99m sestamibi, IV. Dual isotope I and Tc planar andSPECT/CT neck and upper chest images for tumor localization withcomputer-generated subtraction. FINDINGS: Delayed phase and subtraction images demonstrate a discordantfocus of persistent radiotracer activity just posterior and inferior tothe left thyroid lobe, corresponding to a 1.3 x 1.4 cm low-attenuationnodule on correlative CT (series 1007, image 58), consistent with site of suspected parathyroid adenoma. Normalradiotracer uptake elsewhere in the head and neck with physiologic uptakein the thyroid and salivary glands. No additional ectopic focus of uptake.Additional findings on low-dose noncontrast CT: Mild senescent intracranial changes. Mild mucosalthickening scattered paranasal sinuses. Mild atheroscleroticcalcifications including the coronary arteries. IMPRESSION: Parathyroid adenoma just posterior and inferior to the left thyroidlobe. Cynthia Sheehan MD [facility] [place] ORDERABLES * Vitamin D Deficiency (08/05/2023 4:04 PM CDT) Vitamin D, Total (25-Hydroxy) 23 20 - 50 ng/mL 08/06/2023 5:56 PM CDT [facility] Comment:optimum levels Blood BLOOD SPECIMEN / Unknown Venipuncture / Unknown 08/05/2023 4:04 PM CDT 08/05/2023 4:04 PM CDT Narrative [facility] - 08/06/2023 5:56 PM CDT Season, race, dietary intake, and treatment affect the concentration of 13-xbzrids-Ufstvky D. Values may decrease during winter months and increase during summer months. Vitamin D determination is routinely performed by an immunoassay specific for 25 hydroxyvitamin D3. ??If an individual is on vitamin D2(ergocalciferol) supplementation, please specify 25 OH vitamin D2 and D3 level determination by LCMSMS test VITD23. Cynthia Sheehan MD LAB - BLOOD ORDER ANDREA [facility] [place] [facility] [address] [facility], [address] [phone] * Phosphorus (08/05/2023 4:04 PM CDT) Phosphorus 3.0 2.5 - 4.5 mg/dL 08/06/2023 5:56 PM CDT [facility] Blood BLOOD SPECIMEN / Unknown Venipuncture / Unknown 08/05/2023 4:04 PM CDT 08/05/2023 4:04 PM CDT Cynthia Sheehan MD LAB - BLOOD ORDER ANDREA [facility] [place] [address] [facility], [address] * (ABNORMAL) Parathyroid Hormone Intact (08/05/2023 4:04 PM CDT) [facility] Parathyroid Hormone Intact 69(H) 15 - 65 pg/mL 08/06/2023 5:29 PM CDT [facility] Blood BLOOD SPECIMEN / Unknown Venipuncture / Unknown 08/05/2023 4:04 PM CDT 08/05/2023 4:04 PM CDT Narrative [facility] - 08/06/2023 5:29 PM CDT This result was obtained with the [employer] PTH STAT assay. This reference range differs from PTH assays used in other [facility] laboratories. Cynthia Sheehan MD LAB - BLOOD ORDER ANDREA Performing Organization Address City/[facility]/ZIP Co de Phone Number [facility] [place] [facility] [address] [facility], [address] * Magnesium (08/05/2023 4:04 PM CDT) [facility] Magnesium 2.0 1.7 - 2.3 mg/dL 08/06/2023 5:56 PM CDT [facility] Blood BLOOD SPECIMEN / Unknown Venipuncture / Unknown 08/05/2023 4:04 PM CDT 08/05/2023 4:04 PM CDT Cynthia Sheehan MD LAB - BLOOD ORDER ANDREA [facility] [place] [facility] [address] [facility], [address] * (ABNORMAL) Creatinine (08/05/2023 4:04 PM CDT) [facility] Creatinine 1.29(H) 0.51 - 0.95 mg/dL 08/06/2023 5:56 PM CDT [facility] GFR Estimate 48(L) >60 mL/min/1.7 3m2 08/06/2023 5:56 PM CDT [facility] Blood BLOOD SPECIMEN / Unknown Venipuncture / Unknown 08/05/2023 4:04 PM CDT 08/05/2023 4:04 PM CDT Cynthia Sheehan MD LAB - BLOOD ORDER ANDREA [facility] [place] [facility] [address] [facility], [address] * (ABNORMAL) Calcium (08/05/2023 4:04 PM CDT) [facility] Signature Calcium 10.9(H) 8.6 - 10.0 mg/dL 08/06/2023 5:56 PM CDT [facility] Blood BLOOD SPECIMEN / Unknown Venipuncture / Unknown 08/05/2023 4:04 PM CDT 08/05/2023 4:04 PM CDT Cynthia Sheehan MD LAB - BLOOD ORDER ANDREA Performing Organization Address City/[facility]/ZIP Co de Phone Number LABORATORY [facility] [place] [facility] [address] [facility], [address] * XR Chest 2 Views (07/19/2023 4:10 PM CDT) Anatomical Region Laterality Modality Chest Digital Radiogra phy Impressions 07/19/2023 4:23 PM CDT IMPRESSION: Heart size is upper limit of normal. Pulmonary vascularity is slightly prominent, though distinct. No pleural effusion, pneumothorax, or abnormal area of consolidation. GUILHERME ZAVALA MD Narrative 07/19/2023 4:23 PM CDT CHEST TWO VIEWS ??07/19/2023 4:10 PM HISTORY: 58-year-old woman with history of breast cancer, now with wheezing and chronic cough. COMPARISON: None Procedure Note Guilherme Zavala MD - 07/19/2023 CHEST TWO VIEWS 07/19/2023 4:10 PM HISTORY: 58-year-old woman with history of breast cancer, now with wheezing and chronic cough. COMPARISON: None IMPRESSION: Heart size is upper limit of normal. Pulmonary vascularity is slightly prominent, though distinct. No pleural effusion, pneumothorax, or abnormal area of consolidation. GUILHERME ZAVALA MD Janine Loza Suman PROJECT ESTIMATOR IMG DIAGNOSTIC IVIS GING ORDERABLES from Last 3 Months Care Teams Propulsion Systems Engineer Relationship Specialty [place] [address] [place] [address] PCP - General Family Medicine 09/10/23 Cynthia Sheehan MD [address] [address] Hospitalist Endocrinology, Diabetes, and Metabolism 04/24/22 Cynthia Sheehan MD [address] [address] [place], [place] [address] Assigned Endocrinology Provider 08/11/22
--- OUTSIDE RECORDS SUMMARY | 2023-09-11 12:27 | XMS_ITS | Encounter Summary ---
Author Organization [place] Address [id number] [place] [address] Care Team Providers Care Freight Brakeman Name Role Phone Cynthia Sheehan MD Unavailable [phone] Clarissa Hamm MD Primary Care Provider + Cynthia Sheehan MD Unavailable [phone] Trina Carbajal MD Primary Care Provider [phone] Encounter Details Date Type Department Care Team (Late st Contact Info) Description 08/08/2023 MyC Medical Advice [address] [place] [address] Leonora Frausto, RN Social History Tobacco Use Types Packs/Day Years Used Date Smoking Tobacco: Never Passive Smoke Exposure: Never Smokeless Tobacco: Never PHQ-2 Answer Date Recorded PHQ-2 Score 0 05/27/2023 Adolescent Education Answer Date Record ed Getting School Help Needed Not on file 12/15 Sex and Gender Information Value Date Recorded Sex Assigned at Not on file Gender Identity Not on file Sexual Orientation Not on file documented as of this encounter Plan of Treatment Upcoming Encounters Date Type Department Care Team (Late st Contact Info) Description 09/17/2023 3:15 PM CDT Office Visit [facility] [place] [address] [place] [address] Karla Mayen MD [facility] [place] [address] [place] [address] 10/11/2023 1:00 PM CDT Office Visit [facility] [address] [place] [phone] [place] [address] [place] [address] documented as of this encounter Visit Diagnoses Not on filedocumented in this encounter Care Teams Freight Brakeman Relationship Specialty Start Date End Date Clarissa Hamm MD [facility] [address] [place] [address] PCP - General 08/07/22 09/09/23 [place] [address] [place] [address] PCP - General Family Medicine 09/10/23 Cynthia Sheehan MD [address] [facility] [address] [place], [place] [address] Hospitalist Endocrinology, Diabetes, and Metabolism 04/24/22 Cynthia Sheehan MD [address] [place] [address] [address] [place], [place] [address] Assigned Endocrinology Provider 08/11/22 documented as of this encounter
--- OUTSIDE RECORDS SUMMARY | 2023-09-11 12:27 | XMS_ITS | Clinical Summary ---
Author Organization [employer] Address [address] [place] [address] Care Team Providers Care Ventilating Expert Name Role Phone Cynthia Sheehan MD Unavailable [phone] Cynthia Sheehan MD Unavailable Trina Carbajal MD Primary Care Provider [phone] Allergies Active Allergy Reactions Criticality Noted Date [...] herapy completed (No AVS)) vitamin D2 (ERGOCALCIFEROL) 59991 units (1250 mcg) capsuleIndications :Hyperparathyroidi sm (H24) TAKE 1 CAPSULE BY MOUTH 1 TIME A WEEK 12 capsule 11/12/2022 4 Discontinued(T herapy completed (No AVS)) amLODIPine (NORVASC) 5 MG tablet Take 1 tablet by mouth 07/18/2023 4 Discontinued(T herapy completed (No AVS)) Active Problems Problem Noted Date Diagnosed Date Hyperparathyroidism (H24) 08/07/2022 Hypercalcemia 08/07/2022 Breast cancer 09/11/2020 Encounters Date Type Department Care Team Description 09/10/2023 4:00 PM CDT Office Visit [address] [phone] Trina Carbajal MD Lipid screening (Primary Dx); Benign essential hypertension; Visit for screening mammogram; Screen for colon cancer; Cervical cancer screening 09/10/2023 Travel 09/09/2023 Travel 09/05/2023 9:00 AM CDT Virtual Visit [facility] [address] [place] [address] Cynthia Sheehan MD Hyperparathyroidism (H24) (Primary Dx); Hypercalcemia 09/02/2023 10:27 AM CDT - 09/02/2023 11:59 PM CDT Hospital Encounter [facility] [address] [phone] Cynthia Sheehan MD Discharge Disposition: Home or Self Care 09/02/2023 10:26 AM CDT Hospital Encounter [facility] [address] [phone] Cynthia Sheehan MD Discharge Disposition: Home or Self Care 09/02/2023 8:50 AM CDT - 09/02/2023 10:25 AM CDT Hospital Encounter [facility] [address] [phone] Cynthia Sheehan MD Hyperparathyroidism (H24); Hypercalcemia Discharge Disposition: Home or Self Care 09/02/2023 Telephone [facility] [address] [place] [phone] Cynthia Sheehan MD 09/02/2023 Travel 09/01/2023 Travel 08/08/2023 MyC Medical Advice [facility] [address] [facility] [address] [place] [address] Leonora Frausto RN 08/07/2023 Telephone [facility] [address] [place] [phone] Cynthia Sheehan MD 08/05/2023 4:00 PM CDT Lab [facility] [address] [place] [phone] Hyperparathyroidism (H24); Hypercalcemia 08/05/2023 Travel 07/19/2023 4:01 PM CDT - 07/19/2023 11:59 PM CDT Hospital Encounter [facility] [address] [place] [phone] Janine Will NP Malignant neoplasm of overlapping sites of left female breast (H); Wheezing; Chronic cough Discharge Disposition: Home or Self Care 07/19/2023 Travel from Last 3 Months Immunizations Name Administration Dates Next Due TDAP (Adacel,Boostrix) 08/03/2011 Family History Medical History Relation Comments Hypertension Brother 1 Substance Abuse Brother 2 Substance Abuse Father Alcoholism Breast Cancer Mother Hypertension Mother Relation Status Comments Brother 1 Brother 2 Father Mother Social History Tobacco Use Types Packs/Day Years [...] Answer Date Recorded Do you have housing? (Olvin albert is defined as stable permanent housing and does not include staying ouside in a car, in a tent, in an abandoned building, in an overnight alf, or couch-surfing.) Yes 09/09/2023 Are you worried [...] Description 09/17/2023 3:15 PM CDT Office Visit [facility] Surgery [facility] [address] [place] [phone] Karla Mayen MD [facility] [place] [address] [place] [address] 10/11/2023 1:00 PM CDT Office Visit [facility] [address] [place] [phone] [place] [address] [place] [address] Health Maintenance Due Date Last Done Comments ADVANCE CARE PLANNING 1965 ANNUAL REVIEW OF HM ORDERS 1965 CT COLONOGRAPHY 1965 FIT 1965 FLEX SIG 1965 GLUCOSE 1965 MAMMO SCREENING 1965 YEARLY PREVENTIVE VISIT 1965 sDNA (Cologuard) 1965 Pneumococcal Vaccine: Pediatrics (0 to 5 Years) and At-Risk Patients (6 to 64 Years) (1 of 2 - PCV) 1971 COLONOSCOPY 1975 COLORECTAL CANCER SCREENING 1975 HIV SCREENING 01/26/1980 HEPATITIS C SCREENING 1983 HEPATITIS B IMMUNIZATION (1 of 3 - 19+ 3-dose series) 01/26/1984 ZOSTER IMMUNIZATION (1 of 2) 01/26/1984 PAP 1986 LIPID 2005 COVID-19 Vaccine (3 - Modern a risk series) 02/23/2021 01/26/2021, 12/29/2020 DTAP/TDAP/TD IMMUNIZATION (2 - Td or Tdap) 08/02/2021 08/03/2011 INFLUENZA VACCINE (Season Ended) 2023 PHQ-2 (once per calendar year) Completed 09/05/2023, 05/27/2023 HPV IMMUNIZATION Aged Out No longer e [...] lobe. Narrative 09/02/2023 2:10 PM CDT EXAM: NM PARATHYROID PLANAR W/SPECT and CT DUAL LOCATION: [facility] DATE: 09/02/2023 INDICATION: ??Hyperparathyroidism (H24), Hypercalcemia COMPARISON: [...] Note Arjun Ferrara MD - 09/02/2023 EXAM: NM PARATHYROID PLANAR W/SPECT and CT DUAL LOCATION: [facility] DATE: 09/02/2023 INDICATION: Hyperparathyroidism (H24), Hypercalcemia COMPARISON: [...] to the left thyroidlobe. Cynthia Sheehan MD [facility] ORDERABLES * Vitamin D Deficiency (08/05/2023 4:04 PM CDT) Vitamin D, Total (25-Hydroxy) 23 20 - 50 ng/mL 08/06/2023 5:56 PM CDT [facility] Comment:optimum levels Blood BLOOD SPECIMEN / Unknown Venipuncture / Unknown 08/05/2023 4:04 PM CDT 08/05/2023 4:04 PM CDT Narrative [facility] - 08/06/2023 5:56 PM CDT Season, race, dietary intake, and treatment affect the concentration of 69-sosmsdx-Azzxmvi D. Values may decrease during winter months and increase during summer months. Vitamin D determination is routinely performed by an immunoassay specific for 25 hydroxyvitamin D3. ??If an individual is on vitamin D2(ergocalciferol) supplementation, please specify 25 OH vitamin D2 and D3 level determination by LCMSMS test VITD23. Cynthia Sheehan MD LAB - BLOOD ORDER ANDREA Performing Organization Address City/[facility]/ZIP Co de Phone Number [facility] [place] [facility] [address] [facility], [address] * Phosphorus (08/05/2023 4:04 PM CDT) Phosphorus 3.0 2.5 - 4.5 mg/dL 08/06/2023 5:56 PM CDT [facility] Blood BLOOD SPECIMEN / Unknown Venipuncture / Unknown 08/05/2023 4:04 PM CDT 08/05/2023 4:04 PM CDT Cynthia Sheehan MD LAB - BLOOD ORDER ANDREA [facility] [place] [facility] [address] [facility], [address] [phone] * (ABNORMAL) Parathyroid Hormone Intact (08/05/2023 4:04 PM CDT) Parathyroid Hormone Intact 69(H) 15 - 65 pg/mL 08/06/2023 5:29 PM CDT [facility] Blood BLOOD SPECIMEN / Unknown Venipuncture / Unknown 08/05/2023 4:04 PM CDT 08/05/2023 4:04 PM CDT Narrative [facility] - 08/06/2023 5:29 PM CDT This result was obtained with the [employer] PTH STAT assay. This reference range differs from PTH assays used in other [facility] laboratories. Cynthia Sheehan MD LAB - BLOOD ORDER ANDREA LABORATORY [facility] [address] [facility], [address] * Magnesium (08/05/2023 4:04 PM CDT) Magnesium 2.0 1.7 - 2.3 mg/dL 08/06/2023 5:56 PM CDT [facility] Blood BLOOD SPECIMEN / Unknown Venipuncture / Unknown 08/05/2023 4:04 PM CDT 08/05/2023 4:04 PM CDT Cynthia Sheehan MD LAB - BLOOD ORDER ANDREA Performing Organization Address City/[facility]/ZIP Co de Phone Number LABORATORY [facility] [address] [facility], [address] * (ABNORMAL) Creatinine (08/05/2023 4:04 PM CDT) Creatinine 1.29(H) 0.51 - 0.95 mg/dL 08/06/2023 5:56 PM CDT [facility] GFR Estimate 48(L) >60 mL/min/1.7 3m2 08/06/2023 5:56 PM CDT [facility] Blood BLOOD SPECIMEN / Unknown Venipuncture / Unknown 08/05/2023 4:04 PM CDT 08/05/2023 4:04 PM CDT Cynthia Sheehan MD LAB - BLOOD ORDER ANDREA LABORATORY [facility] [place] [facility] [address] [facility], [address] [place] [phone] * (ABNORMAL) Calcium (08/05/2023 4:04 PM CDT) Calcium 10.9(H) 8.6 - 10.0 mg/dL 08/06/2023 5:56 PM CDT [facility] Blood BLOOD SPECIMEN / Unknown Venipuncture / Unknown 08/05/2023 4:04 PM CDT 08/05/2023 4:04 PM CDT Cynthia Sheehan MD LAB - BLOOD ORDER ANDREA [facility] Core [facility] [address] [facility], [address] [place], [place] [phone] * XR Chest 2 Views (07/19/2023 4:10 [...] area of consolidation. GUILHERME ZAVALA MD Janine Will [facility] ORDERABLES from Last 3 Months Care Teams Ventilating Expert Relationship Specialty [place] [address] [place] [address] PCP - General Family Medicine 09/10/23 Cynthia Sheehan MD [address] [address] Hospitalist Endocrinology, Diabetes, and Metabolism 04/24/22 Cynthia Sheehan MD [address] [place] [address] [address] [place], [place] [address] Assigned Endocrinology Provider 08/11/22
--- OUTSIDE RECORDS SUMMARY | 2023-09-11 12:27 | XMS_ITS | Encounter Summary ---
Author Organization [employer] Address [address] [place] [address] Care Team Providers Care Applications Development Consultant Name Role Phone Cynthia Sheehan MD Unavailable Clarissa Hamm MD Primary Care Provider + Cynthia Sheehan MD Unavailable [phone] Encounter Details Date Type Department Care Team (Late st Contact Info) Description 08/05/2023 4:00 PM CDT Lab [facility] [address] [place] [address] Hyperparathyroidism (H24); Hypercalcemia Social History Tobacco Use Types Packs/Day Years [...] Encounter Note - Cynthia Sheehan MD - 08/05/2023 4:00 PM CDT Labs/results noted. Please see telephone encounter dated 08/07/2023. documented in this encounter Plan of Treatment Upcoming Encounters Date Type Department Care Team (Late st Contact Info) Description 09/17/2023 3:15 PM CDT Office Visit [facility] Surgery [facility] [address] [place] [phone] Karla Mayen MD [facility] [place] [address] [place] [address] 10/11/2023 1:00 PM CDT Office Visit [facility] [address] [place] [phone] [place] [address] [place] [address] documented as of this encounter Procedures Procedure Name Priority Date/Time Associated Diagnosis Comments VITAMIN D DEFICIENCY SCREENING Routine 08/05/2023 4:04 PM CDT Hyperparathyroidism (H24) PHOSPHORUS Routine 08/05/2023 4:04 PM CDT Hyperparathyroidism (H24) PARATHYROID HORMONE INTACT Routine 08/05/2023 4:04 PM CDT Hyperparathyroidism (H24) MAGNESIUM Routine 08/05/2023 4:04 PM CDT Hyperparathyroidism (H24) CREATININE Routine 08/05/2023 4:04 PM CDT Hyperparathyroidism (H24) CALCIUM Routine 08/05/2023 4:04 PM CDT Hyperparathyroidism (H24) documented in this encounter Results * (ABNORMAL) Creatinine (08/05/2023 4:04 PM CDT) Creatinine 1.29(H) 0.51 - 0.95 mg/dL 08/06/2023 5:56 PM CDT [facility] GFR Estimate 48(L) >60 mL/min/1.7 3m2 08/06/2023 5:56 PM CDT [facility] Blood BLOOD SPECIMEN / Unknown Venipuncture / Unknown 08/05/2023 4:04 PM CDT 08/05/2023 4:04 PM CDT Cynthia Sheehan MD LAB - BLOOD ORDER ANDREA [facility] [place] [facility] [address] [facility], [address] * (ABNORMAL) Calcium (08/05/2023 4:04 PM CDT) Calcium 10.9(H) 8.6 - 10.0 mg/dL 08/06/2023 5:56 PM CDT [facility] Blood BLOOD SPECIMEN / Unknown Venipuncture / Unknown 08/05/2023 4:04 PM CDT 08/05/2023 4:04 PM CDT Cynthia Sheehan MD LAB - BLOOD ORDER ANDREA Performing Organization Address City/[facility]/ZIP Co de Phone Number [facility] [place] [facility] [address] [facility], [address] * Vitamin D Deficiency (08/05/2023 4:04 PM CDT) Vitamin D, Total (25-Hydroxy) 23 20 - 50 ng/mL 08/06/2023 5:56 PM CDT [facility] Comment:optimum levels Blood BLOOD SPECIMEN / Unknown Venipuncture / Unknown 08/05/2023 4:04 PM CDT 08/05/2023 4:04 PM CDT Narrative [facility] - 08/06/2023 5:56 PM CDT Season, race, dietary intake, and treatment affect the concentration of 26-jyjsagk-Vzipdji D. Values may decrease during winter months and increase during summer months. Vitamin D determination is routinely performed by an immunoassay specific for 25 hydroxyvitamin D3. ??If an individual is on vitamin D2(ergocalciferol) supplementation, please specify 25 OH vitamin D2 and D3 level determination by LCMSMS test VITD23. Cynthia Sheehan MD LAB - BLOOD ORDER ANDREA LABORATORY [facility] [place] [facility] [address] [facility], [address] * (ABNORMAL) Parathyroid Hormone Intact (08/05/2023 4:04 PM CDT) Pathologist [facility] Parathyroid Hormone Intact 69(H) 15 - 65 pg/mL 08/06/2023 5:29 PM CDT LABORATORY Blood BLOOD SPECIMEN / Unknown Venipuncture / Unknown 08/05/2023 4:04 PM CDT 08/05/2023 4:04 PM CDT Narrative [facility] - 08/06/2023 5:29 PM CDT This result was obtained with the [employer] PTH STAT assay. This reference range differs from PTH assays used in other [facility] laboratories. Cynthia Sheehan MD LAB - BLOOD ORDER ANDREA LABORATORY [facility] [place] [facility] [address] [facility], [address] * Magnesium (08/05/2023 4:04 PM CDT) [facility] Magnesium 2.0 1.7 - 2.3 mg/dL 08/06/2023 5:56 PM CDT LABORATORY Blood BLOOD SPECIMEN / Unknown Venipuncture / Unknown 08/05/2023 4:04 PM CDT 08/05/2023 4:04 PM CDT Cynthia Sheehan MD LAB - BLOOD ORDER ANDREA LABORATORY [facility] [place] [facility] [address] [facility], [address] * Phosphorus (08/05/2023 4:04 PM CDT) Pathologist [facility] Phosphorus 3.0 2.5 - 4.5 mg/dL 08/06/2023 5:56 PM CDT [facility] Blood BLOOD SPECIMEN / Unknown Venipuncture / Unknown 08/05/2023 4:04 PM CDT 08/05/2023 4:04 PM CDT Cynthia Sheehan MD LAB - BLOOD ORDER ANDREA [facility] [address] [facility], [address] [place] [address] documented in this encounter Visit Diagnoses Diagnosis Hyperparathyroidism (H24) Hyperparathyroidism, unspecified Hypercalcemia documented in this encounter Care Teams Applications Development Consultant Relationship Specialty Start Date End Date Clarissa Hamm MD [facility] [address] [place] [address] PCP - General 08/07/22 09/09/23 Cynthia Sheehan MD [address] [address] Hospitalist Endocrinology, Diabetes, and Metabolism 04/24/22 Cynthia Sheehan MD [address] [place] [address] 200 [place], [place] [address] Assigned Endocrinology Provider 08/11/22 documented as of this encounter
--- OUTSIDE RECORDS SUMMARY | 2023-09-11 12:27 | XMS_ITS | Encounter Summary ---
Author Organization [place] Address [address] [facility] [place] [address] Care Team Providers Care Access Developer Name Role Phone Cynthia Sheehan MD Unavailable Clarissa Hamm MD Primary Care Provider + Cynthia Sheehan MD Unavailable [phone] Reason for Referral * Diagnostic Imaging NM (Routine) - Closed Specialty Diagnoses / Procedures Referred By Contac t Referred To Contact Radiology. Diagnoses Hyperparathyroidism (H24) Hypercalcemia Procedures NM Parathyroid Planar w/Spect & CT Dual Cynthia Sheehan MD [address] [place] [address] 200 [place] [address] Nuclear Medicine [address] [place] [phone] Referral ID Status Reason Start Date Expiration Date Visits Re quested Visits Authorized [id number] Closed 08/07/2023 08/06/2024 3 3 Encounter Details Date Type Department Care Team (Late st Contact Info) Description 08/07/2023 Telephone [facility] [address] [place] [address] Cynthia Sheehan MD [address] [place] [address] 200 [place] [address] Social History Tobacco Use Types Packs/Day Years [...] Telephone Encounter - Leonora Frausto RN - 08/08/2023 8:28 AM CDT My chart sent. * Telephone Encounter - Cynthia Sheehan MD - 08/07/2023 5:11 PM CDT Latest Ref Rng 08/05/2023 4:04 PM [facility] Vitamin D, Total (25-Hydroxy) 20 - 50 ng/mL 23 Calcium 8.6 - 10.0 mg/dL 10.9 (H) Creatinine 0.51 - 0.95 mg/dL 1.29 (H) Magnesium 1.7 - 2.3 mg/dL 2.0 Parathyroid Hormone Intact 15 - 65 pg/mL 69 (H) Noted high calcium and high parathyroid hormone Recommend 24-hour urine calcium and NM parathyroid scan Follow-up after that. 24 Hour Urine Collection - During a 24-hour urine collection, follow your usual diet and drink fluids as you ordinarily would. - Avoid drinking alcohol before and during the urine collection. - For a 24-hour urine collection, all of the urine that you pass over a 24-hour time period must becollected. You will receive a special container to collect the sample. The following are directions for collecting a 24-hour urine sample while at home: In the morning scheduled to begin the urine collection, urinate in the toilet and flush away the first urine you pass. Write down the date and time. That is the start date and time for the collection. Collect all urine you pass, day and night, for 24 hours. Use the container given to you to collect the urine. Avoid using other containers. The urine sample must include the last urine that you pass 24 hours after starting the collection. Do not allow toilet paper, stool, or anything else to be added to the urine sample. Write down the date and time that the last sample is collected. documented in this encounter Plan of Treatment Upcoming Encounters Date Type Department Care Team (Late st Contact Info) Description 09/17/2023 3:15 PM CDT Office Visit [facility] Surgery [facility] [address] [place] [phone] Karla Mayen MD [facility] [place] [address] [facility] [address] [place] [address] 10/11/2023 1:00 PM CDT Office Visit [address] [phone] [place] [id number] [place] [address] Scheduled Orders Name Type Priority Associated Diagnoses Orde r Schedule Calcium timed urine Lab Routine Hyperparathyroidism (H24) Hypercalcemia Expected: 08/07/2023 (Approximate), Expires: 09/06/2023 documented as of this encounter Results * NM Parathyroid Planar w/Spect & CT Dual (09/02/2023 1:40 PM CDT) Anatomical Region Laterality Modality Neck Nuclear Medicine 09/02/2023 1:40 PM CDT Impressions 09/02/2023 2:10 PM CDT IMPRESSION: Parathyroid adenoma just posterior and inferior to the left thyroid lobe. Narrative 09/02/2023 2:10 PM CDT EXAM: NM PARATHYROID PLANAR W/SPECT and CT DUAL LOCATION: [facility] DATE: 09/02/2023 INDICATION: ??Hyperparathyroidism (H24), Hypercalcemia [...] PARATHYROID PLANAR W/SPECT and CT DUAL LOCATION: [facility] DATE: 09/02/2023 INDICATION: Hyperparathyroidism (H24), Hypercalcemia [...] to the left thyroidlobe. Cynthia Sheehan MD [facility] [place] ORDERABLES documented in this encounter Visit Diagnoses Diagnosis Hyperparathyroidism (H24)- Primary Hyperparathyroidism, unspecified Hypercalcemia Hyperparathyroidism (H24) Hyperparathyroidism, unspecified Hypercalcemia documented in this encounter Care Teams Access Developer Relationship Specialty Start Date End Date Clarissa Hamm MD [facility] [address] [place] [address] PCP - General 08/07/22 09/09/23 Cynthia Sheehan MD [address] [facility] [address] [place], [place] [phone] Hospitalist Endocrinology, Diabetes, and Metabolism 04/24/22 Cynthia Sheehan MD [address] [facility] [address] [place], [place] [address] Assigned Endocrinology Provider 08/11/22 documented as of this encounter
--- OUTSIDE RECORDS SUMMARY | 2023-09-11 12:27 | XMS_ITS | Encounter Summary ---
Author Organization [place] Address [address] [facility] [place] [address] Care Team Providers Care Methane Gas Collection System Operator Name Role Phone Cynthia Sheehan MD Unavailable [phone] Clarissa Hamm MD Primary Care Provider + Cynthia Sheehan MD Unavailable [phone] Encounter Details Date Type Department Care Team (Latest Contact Info) Description 09/09/2023 Travel Social History Tobacco Use Types Packs/Day [...] in an abandoned building, in an overnight half-way, or couch-surfing.) Yes 09/09/2023 Are you worried [...] Description 09/17/2023 3:15 PM CDT Office Visit [facility] Surgery [facility] [address] [place] [address] Karla Mayen MD [facility], [place] [address] [place] [address] 10/11/2023 1:00 PM CDT Office Visit [facility] [address] [place] [phone] [place] [address] [place] [address] documented as of this encounter Visit Diagnoses Not on filedocumented in this encounter Care Teams Methane Gas Collection System Operator Relationship Specialty Start Date End Date Clarissa Hamm MD [facility] [address] [place] [address] PCP - General 08/07/22 09/09/23 Cynthia Sheehan MD [address] [facility] 200 [place] [address] Hospitalist Endocrinology, Diabetes, and Metabolism 04/24/22 Cynthia Sheehan MD [address] [place] [address] 200 [place] [address] Assigned Endocrinology Provider 08/11/22 documented as of this encounter
--- OUTSIDE RECORDS SUMMARY | 2023-09-11 12:27 | XMS_ITS | Encounter Summary ---
Author Organization [place] Address [address] [facility] [place] [address] Care Team Providers Care Vapor Coater Name Role Phone Cynthia Sheehan MD Unavailable [phone] Clarissa Hamm MD Primary Care Provider + Cynthia Sheehan MD Unavailable Reason for Referral * Diagnostic Imaging NM (Routine) - Closed Specialty Diagnoses / Procedures [facility] Referred To Contact Radiology. Diagnoses Hyperparathyroidism (H24) Hypercalcemia Procedures NM Parathyroid Planar w/Spect & CT Dual Cynthia Sheehan MD [address] [place] [address] [address] [place] [address] Nuclear Medicine [address] [facility] [place] [address] Referral ID Status Reason Start Date Expiration Date Visits Re quested Visits Authorized [id number] Closed 08/07/2023 08/06/2024 3 3 Reason for Visit * Diagnostic Imaging NM (Routine) - Closed Specialty Diagnoses / Procedures Referred By Contac Referred To Contact Radiology. Diagnoses Hyperparathyroidism (H24) Hypercalcemia Procedures NM Parathyroid Planar w/Spect & CT Dual Cynthia Sheehan MD [address] [place] [address] [address] [place] [address] Nuclear Medicine [address] [phone] Referral ID Status Reason Start Date Expiration Date Visits Re quested Visits Authorized [id number] Closed 08/07/2023 08/06/2024 3 3 Encounter Details Date Type Department Care Team (Latest Contact Info) Description 09/02/2023 8:50 AM CDT - 09/02/2023 10:25 AM CDT Hospital Encounter [facility] [address] [address] Cynthia Sheehan MD [address] [facility] [address] [place] [address] Hyperparathyroidism (H24); Hypercalcemia Discharge Disposition: Home or Self Care Social History Tobacco Use Types Packs/Day Years [...] on file documented as of this encounter Medications at Time of Discharge Medication Sig Dispensed Refills Start Date End Date fexofenadine (CAROL) 180 MG tablet Take 1 tablet by mouth 07/19/2023 letrozole (FEMARA) 2.5 MG tablet Take 1 tablet by mouth daily at 2 pm 06/30/2022 VERZENIO 150 MG tablet 08/05/2022 Zoledronic Acid (ZOMETA IV) 04/08/2021 abemaciclib (VERZENIO) 100 MG tablet 01/09/2021 09/10/2023 amLODIPine (NORVASC) 5 MG tablet Take 1 tablet by mouth 07/18/2023 09/10/2023 vitamin D2 (ERGOCALCIFEROL) 06509 units (1250 mcg) capsuleIndications:Hype rparathyroidism (H24) TAKE 1 CAPSULE BY MOUTH 1 TIME A WEEK 12 capsule 11/12/2022 09/10/2023 documented as of this encounter Miscellaneous Notes * Result Encounter Note - Cynthia Sheehan MD - 09/02/2023 5:41 PM CDT [place] Recently done endocrinology lab test/ imaging test showed: ACTH stim test in acceptable range. Plan to continue to monitor. Here is a copy for your records. Please call endocrinology clinic ) if questions. Cynthia Sheehan MD Endocrinology [facility] September 02, 2023 documented in this encounter Plan of Treatment Upcoming Encounters Date Type Department Care Team (Late st Contact Info) Description 09/17/2023 3:15 PM CDT Office Visit [facility] Surgery [facility] [address] [facility] [address] [place] [phone] Karla Mayen MD [facility] [address] [facility] [address] [place], [place] [phone] 10/11/2023 1:00 PM CDT Office Visit [facility] [address] [place] [phone] [place] [address] [place] [phone] documented as of this encounter Procedures Procedure Name Priority Date/Time Associated Diagnosis Comments NM PARATHYROID PLANAR W/SPECT & CT DUAL Routine 09/02/2023 1:40 PM CDT Hyperparathyroidism (H24) Hypercalcemia documented in this encounter Results * NM Parathyroid Planar w/Spect & CT Dual (09/02/2023 1:40 PM CDT) Anatomical Region Laterality Modality Neck Nuclear Medicine 09/02/2023 1:40 PM CDT Impressions 09/02/2023 2:10 PM CDT IMPRESSION: Parathyroid adenoma just posterior and inferior to the left thyroid lobe. Narrative 09/02/2023 2:10 PM CDT EXAM: NM PARATHYROID PLANAR W/SPECT and CT DUAL LOCATION: [facility] DATE: 09/02/2023 INDICATION: ??Hyperparathyroidism (H24), Hypercalcemia COMPARISON: [...] PARATHYROID PLANAR W/SPECT and CT DUAL LOCATION: [facility] DATE: 09/02/2023 INDICATION: Hyperparathyroidism (H24), Hypercalcemia COMPARISON: [...] to the left thyroidlobe. Cynthia Sheehan MD IMG NM ORDERABLES documented in this encounter Visit Diagnoses Diagnosis Hyperparathyroidism (H24) Hyperparathyroidism, unspecified Hypercalcemia documented in this encounter Administered Medications Inactive Administered Medications - up to 3 most recent administrations Medication Order MAR Action Action Date Dose Rate Site sodium iodide I-123 radioisotope capsule 600 microcurie 600 microcurie, Oral, ONCE, On 09/02/23 at 0900, For 1 dose, Supplied by, and administered by Nuclear Medicine. *HW* $Given 09/02/2023 9:05 AM CDT 583 microcuries documented in this encounter Care Teams Vapor Coater Relationship Specialty Start Date End Date Clarissa Hamm MD [facility] & [address] [address] PCP - General 08/07/22 09/09/23 Cynthia Sheehan MD [address] [id number] Hospitalist Endocrinology, Diabetes, and Metabolism 04/24/22 Cynthia Sheehan MD [address] [place] [address] Assigned Endocrinology Provider 08/11/22 documented as of this encounter
--- OUTSIDE RECORDS SUMMARY | 2023-09-11 12:27 | XMS_ITS | Encounter Summary ---
Author Organization [place] Address [address] [facility] [place] [address] Care Team Providers Care Assistant Director Of Security Name Role Phone Cynthia Sheehan MD Unavailable Clarissa Hamm MD Primary Care Provider + Cynthia Sheehan MD Unavailable [phone] Encounter Details Date Type Department Care Team (Latest Contact Info) Description 09/02/2023 Travel Social History Tobacco Use Types Packs/Day [...] Office Visit [facility] Surgery [facility] [address] [place] [phone] Karla Mayen MD [facility], [place] [address] [place] [address] 10/11/2023 1:00 PM CDT Office Visit [address] [phone] [place] [address] [place] [address] documented as of this encounter Visit Diagnoses Not on filedocumented in this encounter Care Teams Assistant Director Of Security Relationship Specialty Start Date End Date Clarissa Hamm MD [facility] [address] [place] [address] PCP - General 08/07/22 09/09/23 Cynthia Sheehan MD [address] [facility] 200 [place], [place] [phone] Hospitalist Endocrinology, Diabetes, and Metabolism 04/24/22 Cynthia Sheehan MD [address] [place] [address] 200 [place], [place] [address] Assigned Endocrinology Provider 08/11/22 documented as of this encounter
--- OUTSIDE RECORDS SUMMARY | 2023-09-11 12:27 | XMS_ITS | Encounter Summary ---
Author Organization [place] Address [address] [place] [address] Care Team Providers Care Slip Box Changer Name Role Phone Cynthia Sheehan MD Unavailable [phone] Clarissa Hamm MD Primary Care Provider + Cynthia Sheehan MD Unavailable Reason for Visit * Diagnostic Imaging NM (Routine) - Closed Specialty Diagnoses / Procedures Referred By Contac t Referred To Contact Radiology. Diagnoses Hyperparathyroidism (H24) Hypercalcemia Procedures NM Parathyroid Planar w/Spect & CT Dual Cynthia Sheehan MD [address] [place] [address] 200 [place] [address] Nuclear Medicine [address] [address] Referral ID Status Reason Start Date Expiration Date Visits Re quested Visits Authorized [id number] Closed 08/07/2023 08/06/2024 3 3 Encounter Details Date Type Department Care Team (Latest Contact Info) Description 09/02/2023 10:27 AM CDT - 09/02/2023 11:59 PM CDT Hospital Encounter [facility] Imaging [address] [address] Cynthia Sheehan MD [address] [place] [address] 200 [place] [address] Discharge Disposition: Home or Self Care Social [...] by mouth 07/18/2023 09/10/2023 vitamin D2 (ERGOCALCIFEROL) 12708 units (1250 mcg) capsuleIndications:Hype rparathyroidism (H24) TAKE 1 CAPSULE BY MOUTH 1 TIME A WEEK 12 capsule 11/12/2022 09/10/2023 documented as of this encounter Plan of Treatment Upcoming Encounters Date Type Department Care Team (Late st Contact Info) Description 09/17/2023 3:15 PM CDT Office Visit [facility] Surgery [facility] [address] [place] [phone] Karla Mayen MD [facility] [address] [facility] [address] [place] [address] 10/11/2023 1:00 PM CDT Office [facility] [address] [place] [phone] [place] [address] [place] [address] documented as of this encounter Procedures Procedure [...] PARATHYROID PLANAR W/SPECT and CT DUAL LOCATION: [facility] DATE: 09/02/2023 INDICATION: ??Hyperparathyroidism (H24), [...] PARATHYROID PLANAR W/SPECT and CT DUAL LOCATION: [facility] DATE: 09/02/2023 INDICATION: Hyperparathyroidism (H24), [...] posterior and inferior to the left thyroidlobe. yCnthia Sheehan MD IMG NM ORDERABLES documented in this encounter Visit Diagnoses Not on filedocumented in this encounter Care Teams Slip Box Changer Relationship Specialty Start Date End Date Clarissa Hamm MD [facility] & [address] [address] PCP - General 08/07/22 09/09/23 Cynthia Sheehan MD [address] [facility] 200 [place] [address] Hospitalist Endocrinology, Diabetes, and Metabolism 04/24/22 Cynthia Sheehan MD [address] [place] [address] [address] [place], [place] [address] Assigned Endocrinology Provider 08/11/22 documented as of this encounter
--- OUTSIDE RECORDS SUMMARY | 2023-09-11 12:27 | XMS_ITS | Encounter Summary ---
Author Organization [place] Address [address] [facility] [place] [address] Care Team Providers Care Plant Controller Name Role Phone Cynthia Sheehan MD Unavailable Clarissa Hamm MD Primary Care Provider + Cynthia Sheehan MD Unavailable [phone] Encounter Details Date Type Department Care Team (Latest Contact Info) Description 08/05/2023 Travel Social History Tobacco Use Types Packs/Day [...] Description 09/17/2023 3:15 PM CDT Office Visit [facility] Surgery [facility] [address] [place] [phone] Karla Mayen MD [facility], [place] [address] [place] [address] 10/11/2023 1:00 PM CDT Office Visit [address] [address] [place] [address] [place] [address] documented as of this encounter Visit Diagnoses Not on filedocumented in this encounter Care Teams Plant Controller Relationship Specialty Start Date End Date Clarissa Hamm MD [facility] [address] [place] [address] PCP - General 08/07/22 09/09/23 Cynthia Sheehan MD [address] [facility] 200 [place], [place] [phone] Hospitalist Endocrinology, Diabetes, and Metabolism 04/24/22 Cynthia Sheehan MD [address] [place] [address] 200 [place], [place] [address] Assigned Endocrinology Provider 08/11/22 documented as of this encounter
--- OUTSIDE RECORDS SUMMARY | 2023-09-11 12:27 | XMS_ITS | Encounter Summary ---
Author Organization [place] Address [address] [facility] [place] [address] Care Team Providers Care Qa Auditor Name Role Phone Cynthia Sheehan MD Unavailable [phone] Clarissa Hamm MD Primary Care Provider + Cynthia Sheehan MD Unavailable Reason for Visit * Diagnostic Imaging NM (Routine) - Closed Specialty Diagnoses / Procedures Referred By Contac t Referred To Contact Radiology. Diagnoses Hyperparathyroidism (H24) Hypercalcemia Procedures NM Parathyroid Planar w/Spect & CT Dual Cynthia Sheehan MD [address] 200 [place] [address] Nuclear Medicine [address] [address] Referral ID Status Reason Start Date Expiration Date Visits Re quested Visits Authorized [id number] Closed 08/07/2023 08/06/2024 3 3 Encounter Details Date Type Department Care Team (Latest Contact Info) Description 09/02/2023 10:26 AM CDT Hospital Encounter [facility] [address] [address] Cynthia Sheehan MD [address] 200 [place] [address] Discharge Disposition: Home or Self [...] by mouth 07/18/2023 09/10/2023 vitamin D2 (ERGOCALCIFEROL) 25096 units (1250 mcg) capsuleIndications:Hype rparathyroidism (H24) TAKE 1 CAPSULE BY MOUTH 1 TIME A WEEK 12 capsule 11/12/2022 09/10/2023 documented as of this encounter Plan of Treatment Upcoming Encounters Date Type Department Care Team (Late st Contact Info) Description 09/17/2023 3:15 PM CDT Office Visit [facility] [address] [facility] [address] [place] [phone] Karla Mayen MD [facility] [address] [place] [address] 10/11/2023 1:00 PM CDT Office Visit [facility] [address] [place] [phone] [place] [address] [place] [address] documented as of this encounter Procedures Procedure Name Priority Date/Time Associated Diagnosis Comments NM PARATHYROID PLANAR W/SPECT & CT DUAL Routine 09/02/2023 1:40 PM CDT Hyperparathyroidism (H24) Hypercalcemia documented in this encounter Visit Diagnoses Not on filedocumented in this encounter Administered Medications Inactive Administered Medications - up to 3 most recent administrations Medication Order MAR Action Action Date Dose Rate Site technetium sestamibi 1 UD per study (Tc99m MiBi) radioisotope injection 25 millicurie 25 millicurie, Intravenous, ONCE, On 09/02/23 at 1230, For 1 dose, Radioisotope, supplied by and administered by Nuclear Medicine. *HW* $Given 09/02/2023 12:00 PM CDT 26.5 millicuries documented in this encounter Care Teams Qa Auditor Relationship Specialty Start Date End Date Clarissa Hamm MD [facility] [address] [place] [address] PCP - General 08/07/22 09/09/23 Cynthia Sheehan MD [address] [address] Hospitalist Endocrinology, Diabetes, and Metabolism 04/24/22 Cynthia Sheehan MD [address] [place] [address] 200 [place], [place] [address] Assigned Endocrinology Provider 08/11/22 documented as of this encounter
--- OUTSIDE RECORDS SUMMARY | 2023-09-11 12:27 | XMS_ITS | Encounter Summary ---
Author Organization [place] Address [address] [facility] [place] [address] Care Team Providers Care Agriscience Teacher Name Role Phone Cynthia Sheehan MD Unavailable [phone] Cynthia Sheehan MD Unavailable [phone] Trina Carbajal MD Primary Care Provider [phone] Encounter Details Date Type Department Care Team (Latest Contact Info) Description 09/10/2023 Travel Social History Tobacco Use Types Packs/Day Years Used Date Smoking Tobacco: Never Passive Smoke Exposure: Never Smokeless Tobacco: Never Alcohol Use Standard Drinks/Week Comments Not Currently [...] Answer Date Recorded Do you have housing? (Debbyin g is defined as stable permanent housing and does not include staying ouside in a car, in a tent, in an abandoned building, in an overnight usp, or couch-surfing.) Yes 09/09/2023 Are you worried [...] Description 09/17/2023 3:15 PM CDT Office Visit [facility] [address] [employer], [address] [place] [phone] Karla Mayen MD [facility] [address] [place] [address] 10/11/2023 1:00 PM CDT Office Visit [facility] [address] [place] [phone] [place] [address] [place] [address] documented as of this encounter Visit Diagnoses Not on filedocumented in this encounter Care Teams Agriscience Teacher Relationship Specialty Start [place] [address] [place] [address] PCP - General Family Medicine 09/10/23 Cynthia Sheehan MD [address] [facility] [address] [place], [place] [address] Hospitalist Endocrinology, Diabetes, and Metabolism 04/24/22 Cynthia Sheehan MD [address] [facility] 200 [place] [address] Assigned Endocrinology Provider 08/11/22 documented as of this encounter
--- OUTSIDE RECORDS SUMMARY | 2023-09-11 12:27 | XMS_ITS | Encounter Summary ---
Author Organization [place] Address [address] [facility] [place] [address] Care Team Providers Care Public Health Inspector Name Role Phone Cynthia Sheehan MD Unavailable [phone] Cynthia Sheehan MD Unavailable [phone] Trina Carbajal MD Primary Care Provider Reason for Visit * Reason Comments Establish Care Recheck Medication Hypertension Encounter Details Date Type Department Care Team (Late st Contact Info) Description 09/10/2023 4:00 PM CDT Office Visit [address] [address] [place] [address] [place] [address] Lipid screening (Primary Dx); Benign essential hypertension; Visit for screening mammogram; Screen for colon cancer; Cervical cancer screening Social History Tobacco Use Types Packs/Day Years [...] in an abandoned building, in an overnight mcc, or couch-surfing.) Yes 09/09/2023 Are you worried [...] on file documented as of this encounter Last Filed Vital Signs Vital Sign Reading [...] Mass Index 40.46 09/10/2023 3:45 PM CDT documented in this encounter Plan of Treatment Upcoming Encounters Date Type Department Care Team (Late st Contact Info) Description 09/17/2023 3:15 PM CDT Office Visit [facility] Surgery [facility] [address] [place] [phone] Karla Mayen MD [facility] [address] [place], [place] [address] 10/11/2023 1:00 PM CDT Office Visit [facility] [address] [place] [phone] [place] [address] [place] [address] Scheduled Orders Name Type Priority Associated Diagnoses Orde r Schedule Lipid panel reflex to direct LDL Fasting Lab Routine Lipid screening Expected: 10/10/2023 (Approximate), Expires: 09/09/2024 Basic metabolic panel (Ca, Cl, CO2, Creat, Gluc, K, Na, BUN) Lab Routine Benign essential hypertension Expected: 10/10/2023 (Approximate), Expires: 09/09/2024 documented as of this encounter Visit Diagnoses Diagnosis Lipid screening- Primary Screening for lipoid disorders Benign essential hypertension Essential hypertension, benign Visit for screening mammogram Other screening mammogram Screen for colon cancer Special screening for malignant neoplasms, colon Cervical cancer screening Screening for malignant neoplasm of the cervix documented in this encounter Care Teams Public Health Inspector Relationship Specialty Start [place] [address] [place], [place] [phone] PCP - General Family Medicine 09/10/23 Cynthia Sheehan MD [address] [place] [address] Hospitalist Endocrinology, Diabetes, and Metabolism 04/24/22 Cynthia Sheehan MD [address] [facility] 200 [place] [address] Assigned Endocrinology Provider 08/11/22 documented as of this encounter
--- OUTSIDE RECORDS SUMMARY | 2023-09-11 12:27 | XMS_ITS | Encounter Summary ---
Author Organization [place] Address [address] [facility] [place] [address] Care Team Providers Care Supervisor Agricultural Education Name Role Phone Cynthia Sheehan MD Unavailable [phone] Clarissa Hamm MD Primary Care Provider + Cynthia Sheehan MD Unavailable [phone] Encounter Details Date Type Department Care Team (Latest Contact Info) Description 09/01/2023 Travel Social History Tobacco Use Types Packs/Day [...] Description 09/17/2023 3:15 PM CDT Office Visit [facility] [address] [place] [phone] Karla Mayen MD [facility], [place] [address] [place] [address] 10/11/2023 1:00 PM CDT Office Visit [address] [address] [place] [address] [place] [address] documented as of this encounter Visit Diagnoses Not on filedocumented in this encounter Care Teams Supervisor Agricultural Education Relationship Specialty Start Date End Date Clarissa Hamm MD [facility] [address] [place] [address] PCP - General 08/07/22 09/09/23 Cynthia Sheehan MD [address] [facility] 200 [place], [place] [phone] Hospitalist Endocrinology, Diabetes, and Metabolism 04/24/22 Cynthia Sheehan MD [address] [place] [address] 200 [place], [place] [address] Assigned Endocrinology Provider 08/11/22 documented as of this encounter
--- OUTSIDE RECORDS SUMMARY | 2023-09-11 12:27 | XMS_ITS | Encounter Summary ---
Author Organization [place] Address [address] [facility] [address] Care Team Providers Care Funeral Assistant Name Role Phone Cynthia Sheehan MD Unavailable [phone] Clarissa Hamm MD Primary Care Provider + Cynthia Sheehan MD Unavailable Reason for Referral * Consultation (Routine: Next available opening) - Pending Review Specialty Diagnoses / Procedures Referred By Poornima austin Referred To Contact Surgery Diagnoses Hyperparathyroidism (H24) Hypercalcemia Cynthia Sheehan MD [address] [place] [address] Surgical Consult [address] [place] [address] Referral ID Status Reason Start Date Expiration Date V isits Requested Visits Authorized [id number] Pending Review 09/05/2023 09/04/2024 1 1 Question Answer Preferred Location: [facility] [place] Scheduling Instructions: Please call to schedule your appointment Comments Please be aware that coverage of these services is subject to the terms and limitations of your health insurance plan. Call member services at your health plan with any benefit or coverage questions. Please call to schedule your appointment Reason for Visit * Reason Comments RECHECK Follow up on tests r esults Encounter Details Date Type Department Care Team (Latest Contact Info) Description 09/05/2023 9:00 AM CDT Virtual Visit [facility] [address] [place] [phone] Cynthia Sheehan MD [address] [facility] [address] [place] [address] Hyperparathyroidism (H24) (Primary Dx); Hypercalcemia Social History Tobacco Use Types Packs/Day [...] * Patient Instructions* Cynthia Sheehan MD - 09/05/2023 9:00 AM CDT [facility] Dr Sheehan, Endocrinology Department [facility] [address] [place] [address] Appointment [phone] [place]: Saturday - Recommend 24 hr urine collection Follow up with Surgery for consideration of parathyroid removal. Calcium check 4 weeks after surgery. You can schedule an appointment with Surgery. Dr.Megan Faheem MD. [address] [facility] [place] [address] 24 Hour Urine Collection - During a [...] sample is collected. documented in this encounter Progress Notes * Cynthia Sheehan MD - 09/05/2023 9:00 AM CDT THIS IS A VIDEO VISIT: Phone call visit/virtual visit encounter: Name of patient: Leonarda Shanks Date of encounter: 09/05/2023 Time of start of video visit: 9:02 Video started: 9:09 Video ended: 9:19 Provider location: working from home/ [facility] Patient location: patients home. Mode of transmission: [place] video/ Kout Verbal consent: obtained before starting visit. Pt [...] imaging studies personally. Name: Leonarda Shanks Seen for follow up of hypercalcemia and hyper PTH. HPI: Leonarda Shanks is a 58 year old female who presents for the evaluation of hypercalcemia and hyper PTH. H/o metastatic breast cancer-- followed by . Limited records from her office available. History of left breast cancer- ER positive, SD positive invasive lobular carcinoma. Bone marrow biopsy 2020 revealed metastasis. She started Zometa in 03/2021 and getting Zometa every 3 months. She is getting bone scan. Bone scan in March 2022 showed evidence of response matching clinical response in left breast. Noted to have high calcium level in 2022. PTH level was also elevated-no records to review. Following that she was referred to endocrinology. Recheck labs 07/2022 showed vit D deficiency and was treated with high dose vit D replacement. Follow up 01/2023 labs-- improved vit D and calcium. Recheck labs 07/2023 labs showed high calcium, high parathyroid hormone. 24-hour urine calcium was ordered but not done 08/2023--NM parathyroid scan showing Parathyroid adenoma just posterior and inferior to the left thyroid lobe. History of Cancer: + breast cancer, diagnosed in August 2020. Feeling good. Thiazide Diuretic:No [place] use:No Family History of pituitary adenoma, pancreas tumors, Cash-Tompkins syndrome, pheochromocytoma.No Kidney stones:No Fractures: No Abdominal Pain:No Cramps: No Constipation: No Muscle Aches or pains: No Muscle twitches: No Nausea and vomiting: No Loss of appetite: No Excessive thirst: No Muscle weakness: No Confusion Lethargy and fatigue: No Weight: Stable Average Daily Calcium intake: 1-2 servings of dairy/day. Ca and Vit D supplementation: no calcium supplement. Takes OTC vit D 1000 international unit(s)/day PMH/PSH: Breast cancer Family Hx: Mother: breast cancer Sister: hyperparathyroidism Social Hx: Social History Socioeconomic History Marital status: Spouse name: Not on file Number of children: Not on file Years of education: Not on file Highest education level: Not on file Occupational History Not on file Tobacco Use Smoking status: Never Passive exposure: Never Smokeless tobacco: Never Substance and Sexual Activity Alcohol use: Not on file Drug use: Not on file Sexual activity: Not on file Other Topics Concern Not on file Social History Narrative Not on file Social Determinants of Health Financial Resource Strain: Not on file Food Insecurity: Not on file Transportation Needs: Not on file Physical Activity: Not on file Stress: Not on file Social Connections: Not on file Interpersonal Safety: Not on file Housing Stability: Not on file MEDICATIONS: has a current medication list which includes the following prescription(s): amlodipine, fexofenadine, letrozole, verzenio, zoledronic acid, abemaciclib, and vitamin d2. ROS ROS: 10 point ROS neg other [...] normal speech and appearance well-groomed LABS: Calcium: Latest Ref Rn 02/15/2023 9:26 AM ENDO [facility] Calcium 8.6 - 10.0 mg/dL 10.3 (H) Creatinine: Creatinine Date Value Ref Range Status 08/05/2023 1.29 (H) 0.51 - 0.95 mg/dL Final PTH: Latest Ref Rng 02/15/2023 9:26 AM [facility]O [facility] Parathyroid Hormone Intact 15 - 65 pg/mL 94 (H) Vitamin D: Lab Results Component Value Date VITDT 23 08/05/2023 VITDT 26 02/15/2023 VITDT 11 (L) 08/17/2022 DEXA: Available records, labs and images from [...] primary hyperparathyroidism and other causes of hypercalcemia. Noted persistent hypercalcemia and hyperparathyroidism 08/2023--NM parathyroid scan showing Parathyroid adenoma just posterior and inferior to the left thyroid lobe. History of breast cancer with metastasis to bones. She is getting Zometa every 3 months through oncology. Not on thiazide diuretic. No family history of MEN syndrome. Plan: Discussed diagnosis, pathophysiology, management and treatment options of condition with pt. Recommend 24 hr urine collection In the setting of persistently high hypercalcemia and parathyroid scan concerning for adenoma recommend follow up with Surgery for consideration of parathyroid removal. Calcium check 4 weeks after surgery. Follow-up with endocrinology as needed. Guidelines for parathyroid surgery in asymptomatic primary hyperparathyroidism: Serum Calcium >1.0 mg/dl (0.25 mmol/L) above normal Creatinine Clearance (calculated) Below 60m1/min /1.73 m2) Bone Mineral Density T score < -2.5 SD at spine, hip (total or femoral neck) or radius (distal 1/3 site) or presence of fragility fracture Age Age < 50 years Discussed indications, risks and benefits of all medications prescribed, and answered questions to patient's satisfaction. The longitudinal plan of care for the diagnosis(es)/condition(s) as documented were addressed during this visit. Due to the added complexity in care, I will continue to support Leonarda in the subsequent management and with ongoing continuity of care. All questions were answered. The patient indicates understanding of the above issues and agrees with the plan set forth. Follow-up: As noted in AVS Cynthia Sheehan MD Endocrinology [facility] CC: Clarissa Hamm documented in this encounter Nursing Notes * Jessy Hernández - 09/05/2023 9:00 AM CDT Is the patient currently in the state of [place]? YES Visit mode:VIDEO If the visit is dropped, the patient can be reconnected by: VIDEO VISIT: Text to cell phone: Telephone Information: Will anyone else be joining the visit? NO (If patient encounters technical issues they should call [phone]) How would you like to obtain your AVS? MyChart Are changes needed to the allergy or medication list? Yes pt has medications requested for removal Are refills needed on medications prescribed by this physician? NO- no medications prescribed by this provider Reason for visit: RECHECK (Follow up on tests results ) Jessy Menden VVF documented in this encounter Plan of Treatment Upcoming Encounters Date Type Department Care Team (Late st Contact Info) Description 09/17/2023 3:15 PM CDT Office Visit [facility] Surgery [facility] [address] [place] [phone] Karla Mayen MD [facility] [place] [address] [place], [place] [phone] 10/11/2023 1:00 PM CDT Office Visit [facility] [id number] [place] [phone] [place] [address] [place], [place] [phone] Scheduled Orders Name Type Priority Associated Diagnoses Orde r Schedule Calcium Lab Routine Hyperparathyroidism (H24) Hypercalcemia Expected: 11/05/2023 (Approximate), Expires: 09/04/2024 Scheduled Referrals Name Type Priority Associated Diagnoses Orde r Schedule Adult General Surg Referral Referral Routine: Next available opening Hyperparathyroidism (H24) Hypercalcemia Expected: 09/05/2023 (Approximate), Expires: 09/04/2024 documented as of this encounter Visit Diagnoses Diagnosis Hyperparathyroidism (H24)- Primary Hyperparathyroidism, unspecified Hypercalcemia documented in this encounter Care Teams Funeral Assistant Relationship Specialty Start Date End Date Clarissa Hamm MD [facility] [address] [place] [address] PCP - General 08/07/22 09/09/23 Cynthia Sheehan MD [address] [place] [address] Hospitalist Endocrinology, Diabetes, and Metabolism 04/24/22 Cynthia Sheehan MD [address] [facility] [address] [place] [address] Assigned Endocrinology Provider 08/11/22 documented as of this encounter
--- OUTSIDE RECORDS SUMMARY | 2023-09-11 12:27 | XMS_ITS | Clinical Summary ---
Author Organization [facility] Address [place], [place] [address] Care Team Providers Care Sql Developer Dba Name Role Phone Clarissa Hamm MD Primary Care Provider + Allergies No known active allergies Medications Medication Sig Dispensed Refills Start Date End Date Status letrozole (FEMARA) 2.5 mg tabletIndications:[address] st mass,Malignant neoplasm of left breast in [...] 2022 01/26/2021, 12/29/2020 Influenza for age 50-64 11/24/2023 Pneumococcal series for age 6-64 Aged Out [...] new COVID-19 symptoms. 09/20/2020 09/20/2020 Advance Directives * Full Code (Latest Code Status on File) Date Activated Date Inactivated Comments 09/10/2020 9:47 AM 09/20/2020 7:07 PM Question Answer Comments Code Status Discussion: Per Existing Order Care Teams Sql Developer Dba Relationship Specialty Start Date End Date Clarissa Hamm MD [address] [place] [address] PCP - General Family Practice 09/10/20
--- OUTSIDE RECORDS SUMMARY | 2023-09-11 12:28 | XMS_ITS | Encounter Summary ---
Author Organization [place] Address [address] [facility] [place] [address] Care Team Providers Care Wiring Mechanic Name Role Phone Cynthia Sheehan MD Unavailable [phone] Clarissa Hamm MD Primary Care Provider + Cynthia Sheehan MD Unavailable [phone] Trina Carbajal MD Primary Care Provider [phone] Encounter Details Date Type Department Care Team (Late st Contact Info) Description 02/18/2023 MyC Medical Advice [address] [place] [address] Leonora Frausto, RN Social History [...] Description 09/17/2023 3:15 PM CDT Office Visit [facility] Surgery [place] [address] [place] [phone] Karla Mayen MD [facility] [place] [address] [place], [place] [phone] 10/11/2023 1:00 PM CDT Office Visit [facility] [address] [place] [phone] [place] [address] [place] [address] documented as of this encounter Visit Diagnoses Not on filedocumented in this encounter Care Teams Wiring Mechanic Relationship Specialty Start Date End Date Clarissa Hamm MD [facility] [address] [place] [address] PCP - General 08/07/22 09/09/23 [place] [address] [place] [address] PCP - General Family Medicine 09/10/23 Cynthia Sheehan MD [address] [facility] [address] [place], [place] [address] Hospitalist Endocrinology, Diabetes, and Metabolism 04/24/22 Cynthia Sheehan MD [address] [place] [address] 200 [place] [address] Assigned Endocrinology Provider 08/11/22 documented as of this encounter
--- OUTSIDE RECORDS SUMMARY | 2023-09-11 12:28 | XMS_ITS | Encounter Summary ---
Author Organization [place] Address [facility] [place] [address] Care Team Providers Care Legal Nurse Consultant Name Role Phone Cynthia Sheehan MD Unavailable Clarissa Hamm MD Primary Care Provider + Cynthia Sheehan MD Unavailable Reason for Referral * Diagnostic Imaging XR (Routine) - Pending Review Specialty Diagnoses / Procedures Referred By Contac t Referred To Contact Radiology. Diagnoses Malignant neoplasm of overlapping sites of left female breast (H) Wheezing Chronic cough Procedures XR Chest 2 Views Janine Will NP [facility] [address] [place] [address] [address] [place] [address] Referral ID Status Reason Start Date Expiration Date V isits Requested Visits Authorized [id number] Pending Review 07/19/2023 07/18/2024 1 1 Reason for Visit * Diagnostic Imaging XR (Routine) - Pending Review Specialty Diagnoses / Procedures Referred By Contac t Referred To Contact Radiology. Diagnoses Malignant neoplasm of overlapping sites of left female breast (H) Wheezing Chronic cough Procedures XR Chest 2 Views Janine Will NP [facility] [address] [place] [address] Referral ID Status Reason Start Date Expiration Date V isits Requested Visits Authorized [id number] Pending Review 07/19/2023 07/18/2024 1 1 Encounter Details Date Type Department Care Team (Latest Contact Info) Description 07/19/2023 4:01 PM CDT - 07/19/2023 11:59 PM CDT Hospital Encounter [facility] [address] [place] [place] [address] Janine Will NP [facility] [address] [place] [address] Malignant neoplasm of overlapping sites of left female breast (H); Wheezing; Chronic cough Discharge Disposition: Home or Self Care Social [...] by mouth 07/18/2023 09/10/2023 vitamin D2 (ERGOCALCIFEROL) 86774 units (1250 mcg) capsuleIndications:Hype rparathyroidism (H24) TAKE 1 CAPSULE BY MOUTH 1 TIME A WEEK 12 capsule 11/12/2022 09/10/2023 documented as of this encounter Plan of Treatment Upcoming Encounters Date Type Department Care Team (Late st Contact Info) Description 09/17/2023 3:15 PM CDT Office Visit [facility] [place] [address] [place] [phone] Karla Mayen MD [facility] [place] [address] [facility] [address] [place], [place] [phone] 10/11/2023 1:00 PM CDT Office Visit [facility] [address] [place] [phone] [place] [address] [place] [address] documented as of this encounter Procedures Procedure Name Priority Date/Time Associated Diagnosis Comments XR CHEST 2 VIEWS STAT 07/19/2023 4:10 PM CDT Malignant neoplasm of overlapping sites of left female breast (H) Wheezing Chronic cough documented in this encounter Results * XR Chest 2 Views (07/19/2023 4:10 PM CDT) Anatomical Region Laterality Modality Chest Digital Radiogra phy Impressions 07/19/2023 4:23 PM CDT IMPRESSION: Heart size is upper limit of normal. Pulmonary vascularity is slightly prominent, though distinct. No pleural effusion, pneumothorax, or abnormal area of consolidation. URIAH ZAVALA MD Narrative 07/19/2023 4:23 PM CDT CHEST TWO VIEWS ??07/19/2023 4:10 PM HISTORY: 58-year-old woman with history of breast cancer, now with wheezing and chronic cough. COMPARISON: None Procedure Note Uriah Zavala MD - 07/19/2023 CHEST TWO VIEWS 07/19/2023 4:10 PM HISTORY: 58-year-old woman with history of breast cancer, now with wheezing and chronic cough. COMPARISON: None IMPRESSION: Heart size is upper limit of normal. Pulmonary vascularity is slightly prominent, though distinct. No pleural effusion, pneumothorax, or abnormal area of consolidation. URIAH ZAVALA MD Janine Will INTELLECTUAL PROPERTY COUNSEL IMG DIAGNOSTIC IVIS GING ORDERABLES documented in this encounter Visit Diagnoses Diagnosis Malignant neoplasm of overlapping sites of left female breast (H) Malignant neoplasm of other specified sites of female breast Wheezing Chronic cough Cough documented in this encounter Care Teams Legal Nurse Consultant Relationship Specialty Start Date End Date Clarissa Hamm MD [facility] & [address] [address] PCP - General 08/07/22 09/09/23 Cynthia Sheehan MD [address] [facility] [address] [place] [address] Hospitalist Endocrinology, Diabetes, and Metabolism 04/24/22 Cynthia Sheehan MD [address] [facility] [address] [place], [place] [address] Assigned Endocrinology Provider 08/11/22 documented as of this encounter
--- OUTSIDE RECORDS SUMMARY | 2023-09-11 12:28 | XMS_ITS | Encounter Summary ---
Author Organization [place] Address [address] [facility] [place] [address] Care Team Providers Care Waste Transportation Technician Name Role Phone Cynthia Sheehan MD Unavailable Clarissa Hamm MD Primary Care Provider + Cynthia Sheehan MD Unavailable [phone] Encounter Details Date Type Department Care Team (Latest Contact Info) Description 07/19/2023 Travel Social History Tobacco Use Types Packs/Day [...] Description 09/17/2023 3:15 PM CDT Office Visit [facility] Surgery [facility] [address] [place] [phone] Karla Mayen MD [facility] [place] [address] [place] [address] 10/11/2023 1:00 PM CDT Office Visit [address] [phone] [place] [address] [place] [address] documented as of this encounter Visit Diagnoses Not on filedocumented in this encounter Care Teams Waste Transportation Technician Relationship Specialty Start Date End Date Clarissa Hamm MD [facility] [address] [place] [address] PCP - General 08/07/22 09/09/23 Cynthia Sheehan MD [address] [facility] [address] [place], [place] [phone] Hospitalist Endocrinology, Diabetes, and Metabolism 04/24/22 Cynthia Sheehan MD [address] [place] [address] [address] [place], [place] [address] Assigned Endocrinology Provider 08/11/22 documented as of this encounter
--- NOTE | 2023-09-11 13:00 | CRLHL7_ITS ---
For Patients: As a result of the Century Cures Act, medical imaging exams and procedure reports are released immediately into your electronic medical record. You may view this report before your referring provider. If you have questions, please contact your health care provider. Indication: Breast cancer follow-up Technique: CT Chest/Abd/Pelvis W/ 101CC ISOVUE 370 Please note that all CT scans at this facility use dose modulation, iterative reconstruction, and/or weight-based dosing when appropriate to reduce radiation dose to as low as reasonably achievable. Comparison: CT 04/19/2023 Findings: In the chest, tiny subpleural calcified nodule left upper lobe posteriorly measuring less than 2 millimeters. Nodule is present within the left thyroid lobe measuring 1.2 cm. Left axillary lymph node measuring 1.3 cm is similar. Additional 1.3 cm left axillary lymph node also noted. Posttreatment changes left breast. Normal right axillary lymph nodes. No enlarged mediastinal or hilar lymph nodes. Chronic mild fracture deformities of the right lateral 6th and 7th ribs. No acute fracture. Multilevel degenerative disc disease. No vertebral body compression fracture. Heterogeneity of the vertebral bodies is chronic. Mild dependent areas of atelectasis noted in the lung bases. In the abdomen, a subtle hypodense lesion in the caudate lobe is suspected measuring 1.8 cm, series 2, image 83 and series 2, image 143. Diffuse hepatic steatosis is present. An additional subtle lesion may be developing within the left hepatic lobe measuring 9.7 millimeters, series 2, image 135. Spleen normal. Adrenal glands unremarkable. Kidneys are unchanged with mild ectopia of the right kidney. No solid renal mass or hydronephrosis. The ureters are within normal limits. Normal pancreas. Gallbladder incompletely distended. No biliary obstruction. No retroperitoneal or mesenteric adenopathy. In the pelvis, the bladder is normal. The uterus is unremarkable. Right-sided tubal ligation device. No pelvic or inguinal adenopathy. No adnexal mass. No bowel obstruction. Appendix normal. 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 Multilevel degenerative changes present elsewhere. No pathologic fracture. Right femoral head and right iliac bone are similar. Impression: There is concern for 2 new lesions within the liver measuring 1.8 cm in the caudate lobe and 9.7 millimeters within the left hepatic lobe. MRI of the liver recommended for further evaluation. Stable mildly prominent left axillary lymph nodes measuring up to 1.3 cm. Stable osseous structures. No pathologic fracture. Please note that all CT scans at this facility use dose modulation, iterative reconstruction, and/or weight-based dosing when appropriate to reduce radiation dose to as low as reasonably achievable. Dictated by Justo Cadena MD @ 09/12/2023 3:32:23 PM (Electronically Signed)
== END 2023-09-11 12:26 | disposition home or self-care (01) ==
LOC: CT 12:26
PROVIDERS: PCP Internal Medicine; Visit Provider Internal Medicine Hematology & Oncology
DX: C50.812 Malignant neoplasm of overlapping sites of left female breast (principal); K76.9 Liver disease, unspecified; D63.8 Anemia in other chronic diseases classified elsewhere
CPT/HCPCS: 71260; 74177; Q9967